=== PATIENT | female | born 1960 | race Caucasian/White ===

== ENCOUNTER 2019-03-08 02:47 | Inpatient (IN) | payer MEDICARE, MEDICAID ==
[~2019-03-08] VITALS: Ht 165.1 cm; Wt 154.1 kg
[2019-03-08] VITALS (12 sets, daily range): BP systolic 119–160; BP diastolic 62–81
[2019-03-08] MEDS ORDERED: ONDANSETRON 4 MG/2 ML (SDV) Z0FRAN IVP ONE (03:30)
[2019-03-08] MEDS ORDERED: NS IV 1000 ML 1,000 ML IV SCH ×2 (03:30→06:00)
[2019-03-08] MEDS ORDERED: FAMOTIDINE 20MG/2ML IV (PEPCID) IVP ONE (03:30)
[2019-03-08 03:56] LABS: BASOPHILS % (AUTO) 0 % (0-10); EOSINOPHILS % (AUTO) 0 % (0-10); HEMATOCRIT 42 % (35-52); HEMOGLOBIN 13.6 G/DL (11.5-16.0); LYMPHOCYTES # (AUTO) 1.2 X 10^3 (1.0-4.0); LYMPHOCYTES % (AUTO) 7 % (12-44); MEAN CORPUSCULAR HEMOGLOBIN 29 PG (25-34); MEAN CORPUSCULAR HGB CONC 33 G/DL (32-36); MEAN CORPUSCULAR VOLUME 89 FL (80-99); MEAN PLATELET VOLUME 8.3 FL (7.4-10.4); MONOCYTES % (AUTO) 4 % (0-12); NEUTROPHILS # (AUTO) 15.3 X 10^3 (1.8-7.8); NEUTROPHILS % (AUTO) 89 % (42-75); PLATELET COUNT 305 10^3/uL (130-400); RED CELL DISTRIBUTION WIDTH 14.5 % (10.0-14.5); WHITE BLOOD COUNT 17.3 10^3/uL (4.3-11.0)
[2019-03-08] MEDS ORDERED: fentaNYL INJECTION 100 MCG/2 ML AMP IVP ONE (04:00)
[2019-03-08 04:12] LABS: ALANINE AMINOTRANSFERASE 20 U/L (0-55); ALBUMIN 4.2 GM/DL (3.2-4.5); ALKALINE PHOSPHATASE 92 U/L (40-136); BILIRUBIN,TOTAL 0.4 MG/DL (0.1-1.0); BUN/CREATININE RATIO 26; CALCIUM 9.7 MG/DL (8.5-10.1); CARBON DIOXIDE 26 MMOL/L (21-32); CHLORIDE 98 MMOL/L (98-107); CREATININE SERUM 0.85 MG/DL (0.60-1.30); GFR ESTIMATED > 60; GLUCOSE 177 MG/DL (70-105); POTASSIUM 4.5 MMOL/L (3.6-5.0); SODIUM 137 MMOL/L (135-145); TOTAL PROTEIN 7.5 GM/DL (6.4-8.2)
[2019-03-08 04:13] LABS: BAND NEUTROPHILS 4 %; BASOPHILS % (MANUAL) 0 %; EOSINOPHILS % (MANUAL) 0 %; LIPASE 42 U/L (8-78); LYMPHOCYTES % (MANUAL) 8 %; MONOCYTES % (MANUAL) 5 %; NEUTROPHILS % (MANUAL) 83 %; RBC MORPH NORMAL
[2019-03-08] MEDS ORDERED: IOHEXOL 350 MG/ML 100 ML (OMNIPAQUE 350) VIAL IV ONE (04:15)
[2019-03-08] MEDS ORDERED: NS 100 ML (IVPB) BAG IV ONE (04:15)
[2019-03-08] MEDS ORDERED: HOLD METFORMIN - RECEIVED CONTRAST 20 ML VIAL IV SCH (04:15)
--- NOTE | 2019-03-08 05:07 | NUR ---
AA=276/68, PULSE 78. RESP.16, SATS 95
--- NOTE | 2019-03-08 05:44 | NUR ---
PT. UP TO VOID.
--- NOTE | 2019-03-08 06:09 | ED Abdominal Pain ---
General Chief Complaint: Abdominal/GI Problems Stated Complaint: VOMITING Nursing Triage Note: PT. HAS BEEN VOMITING FOR A FEW HOURS. SHE RECEIVED A FLU SHOT YESTERDAY, JUST FINISHED AUGMENTIN FOR AN EAR INFECTION AND UPPER RESPIRATORY INFECTION. SHE WAS ALSO TAKING SOLUMEDROL. THE PATIENT HAS FINISHED THE AUGMENTIN AND THE SOLUMEDROL. Sepsis Screen: No Definite Risk Source of Information: Patient History of Present Illness Date Seen by Provider: Mar 08, 2019 Time Seen by Provider: 03:00 Initial Comments Patient is a 58-year-old female presents with diffuse midabdominal pain with nausea and multiple episodes of emesis starting several hours prior to arrival. Pain is gradually worsened since began. Mom is nonbilious and nonbloody and primarily contains stomach contents. Pain is described as sharp nonmigratory n onradiating is rated moderate to severe. Patient also reports constipation. Last bowel movement was 2 hours prior to arrival is described as small and soft. No fever chills or sweats. No chest pain or shortness of breath. No other acute symptoms or complaints.. His cholecystectomy. Timing/Duration: 4-6 Hours Severity/Quality: Severe Location: Generalized Abdomen Radiation: No Radiation Activities at Onset: None Associated Symptoms: Nausea/Vomiting Allergies and Home Medications Allergies Coded Allergies: No Known Drug Allergies (Unverified , 03/08/19) Patient Home Medication List Home Medication List Reviewed: Yes Review of Systems Review of Systems Constitutional: see HPI EENTM: See HPI Cardiovascular: See HPI Gastrointestinal: See HPI Genitourinary: See HPI Musculoskeletal: see HPI Skin: see HPI Psychiatric/Neurological: See HPI Endocrine: See HPI Past Cknmprq-Vzjefz-Pqfvps Hx Past Med/Social Hx: Reviewed Nursing Past Med/Soc Hx Patient Social History Recent Foreign Travel: No Contact w/Someone Who Travel: No Recent Infectious Disease Expo: No Recent Hopitalizations: No Physical Abuse: No Sexual Abuse: No Mistreated: No Fear: No Seasonal Allergies Seasonal Allergies: No Past Medical History Surgeries: Yes (PT. DOES HAVE A HERNIA) Gallbladder Asthma Cardiac: No Neurological: No Genitourinary: No Gastrointestinal: Yes Gall Bladder Disease Musculoskeletal: No Endocrine: Yes Diabetes, Non-Insulin dep Are Your Blood Sugars Over 250: No Cancer: No Psychosocial: No Integumentary: Yes (PT. HAS BROWNISH SKIN ON LOWER EXT.) Physical Exam Vital Signs Vital Signs - First Documented 03/08/19 02:50 Temp 36.9 Pulse 72 Resp 20 B/P (MAP) 114/62 (79) Pulse Ox 97 O2 Delivery Room Air Capillary Refill : Less Than 3 Seconds Height/Weight/BMI Height: '" Weight: lbs. oz. kg; 56.00 BMI Method: General Appearance: moderate distress HEENT: PERRL/EOMI, TMs normal, pharynx normal Neck: non-tender, full range of motion, supple Respiratory: chest non-tender, lungs clear Cardiovascular: normal peripheral pulses, regular rate, rhythm Gastrointestinal: soft, distended, tenderness (increased bowel sounds, diffuse midabdominal pain/tenderness. No palpable masses or hernias. Exam limited due to body habitus.), other Extremities: normal range of motion, non-tender Back: normal inspection, no CVA tenderness Focused Exam Sepsis Stage: Ruled Out Progress/Results/Core Measures Results/Orders Lab Results Laboratory Tests Test 03/08/19 03:43 Range/Units White Blood Count 17.3 H 4.3-11.0 10^3/uL Red Blood Count 4.67 4.35-5.85 10^6/uL Hemoglobin 13.6 11.5-16.0 G/DL Hematocrit 42 35-52 % Mean Corpuscular Volume 89 80-99 FL Mean Corpuscular Hemoglobin 29 25-34 PG Mean Corpuscular Hemoglobin Concent 33 32-36 G/DL Red Cell Distribution Width 14.5 10.0-14.5 % Platelet Count 305 130-400 10^3/uL Mean Platelet Volume 8.3 7.4-10.4 FL Neutrophils (%) (Auto) 89 H 42-75 % Lymphocytes (%) (Auto) 7 L 12-44 % Monocytes (%) (Auto) 4 0-12 % Eosinophils (%) (Auto) 0 0-10 % Basophils (%) (Auto) 0 0-10 % Neutrophils # (Auto) 15.3 H 1.8-7.8 X 10^3 Lymphocytes # (Auto) 1.2 1.0-4.0 X 10^3 Monocytes # (Auto) 6.0 H 0.0-1.0 X 10^3 Eosinophils # (Auto) 0.0 0.0-0.3 10^3/uL Basophils # (Auto) 0.0 0.0-0.1 10^3/uL Neutrophils % (Manual) 83 % Lymphocytes % (Manual) 8 % Monocytes % (Manual) 5 % Eosinophils % (Manual) 0 % Basophils % (Manual) 0 % Band Neutrophils 4 % Blood Morphology Comment NORMAL Sodium Level 137 135-145 MMOL/L Potassium Level 4.5 3.6-5.0 MMOL/L Chloride Level 98 98-107 MMOL/L Carbon Dioxide Level 26 21-32 MMOL/L Anion Gap 13 5-14 MMOL/L Blood Urea Nitrogen 22 H 7-18 MG/DL Creatinine 0.85 0.60-1.30 MG/DL Estimat Glomerular Filtration Rate > 60 BUN/Creatinine Ratio 26 Glucose Level 177 H 70-105 MG/DL Calcium Level 9.7 8.5-10.1 MG/DL Corrected Calcium 9.5 8.5-10.1 MG/DL Total Bilirubin 0.4 0.1-1.0 MG/DL Aspartate Amino Transf (AST/SGOT) 17 5-34 U/L Alanine Aminotransferase (ALT/SGPT) 20 0-55 U/L Alkaline Phosphatase 92 40-136 U/L Troponin I < 0.30 <0.30 NG/ML Total Protein 7.5 6.4-8.2 GM/DL Albumin 4.2 3.2-4.5 GM/DL Lipase 42 8-78 U/L My Orders Orders - TEE LOUIS DO Cbc With Automated Diff (03/08/19 02:53) Comprehensive Metabolic Panel (03/08/19 02:53) Lipase (03/08/19 02:53) Troponin I Fs (03/08/19 02:53) Ekg Tracing (03/08/19 02:53) Famotidine Injection (Pepcid Injection) (03/08/19 03:30) Ondansetron Injection (Zofran Injectio (03/08/19 03:30) Ns Iv 1000 Ml (Sodium Chloride 0.9%) (03/08/19 03:30) Ct Abdomen/Pelvis W (03/08/19 03:20) Fentanyl Injection (Sublimaze Injection (03/08/19 04:00) Manual Differential (03/08/19 03:43) Iohexol Injection (Omnipaque 350 Mg/Ml 1 (03/08/19 04:15) Received Contrast (Hold Metformin- Contr (03/08/19 04:15) Ns (Ivpb) (Sodium Chloride 0.9% Ivpb Bag (03/08/19 04:15) Ns Iv 1000 Ml (Sodium Chloride 0.9%) (03/08/19 06:00) Medications Given in ED Current Medications Medications Dose Ordered Sig/Luis Route Start Time Stop Time Status Last Admin Dose Admin Famotidine 20 mg ONCE ONCE IVP 03/08/19 03:30 03/08/19 03:48 DC 03/08/19 03:58 20 MG Fentanyl Citrate 50 mcg ONCE ONCE IVP 03/08/19 04:00 03/08/19 04:01 DC 03/08/19 03:57 50 MCG Iohexol 100 ml ONCE ONCE IV 03/08/19 04:15 03/08/19 04:17 DC 03/08/19 04:21 100 ML Ondansetron HCl 4 mg ONCE ONCE IVP 03/08/19 03:30 03/08/19 03:48 DC 03/08/19 03:55 4 MG Sodium Chloride 100 ml ONCE ONCE IV 03/08/19 04:15 03/08/19 04:17 DC 03/08/19 04:21 100 ML Vital Signs/I&O 03/08/19 02:50 Temp 36.9 Pulse 72 Resp 20 B/P (MAP) 114/62 (79) Pulse Ox 97 O2 Delivery Room Air Blood Pressure Mean: 79 Departure Communication (Admissions) Dr. Adorno Lab, CT abdomen and pelvis reviewed. Findings of incarcerated hernia with partial small bowel obstruction. Dr. Adorno accepts at [facility]. Dr. Delatorre notified for surgical consult. Impression Primary Impression: Abdominal pain Additional Impressions: SBO (small bowel obstruction) Incarcerated hernia Disposition: ADMITTED INPATIENT Condition: Stable Departure-Patient Inst. Referrals: NO,LOCAL PHYSICIAN (PCP) Primary Care Physician TEE LOUIS DO Mar 08, 2019 06:09
[2019-03-08] MEDS ORDERED: morphine INJ 10 MG/ML 1ML (SYR OR VIAL) IVP PRN ×2 (07:00→13:00)
--- NOTE | 2019-03-08 07:58 | Diagnostic Imaging Report ---
PROCEDURE: CT abdomen and pelvis with contrast. TECHNIQUE: Multiple contiguous axial images were obtained through the abdomen and pelvis after administration of intravenous contrast. Auto Exposure Controls were utilized during the CT exam to meet ALARA standards for radiation dose reduction. INDICATION: Cholecystectomy. Abdominal pain and vomiting for 12 hours after a flu shot. CT abdomen and pelvis with contrast 03/08/2019. COMPARISONS: None. FINDINGS: Diffusely dilated small bowel loops seen throughout the abdomen they are fluid filled. There is an anterior abdominal wall hernia predominantly containing fat but also containing a loop of small bowel perhaps the site of obstruction/incarceration. The colon is decompressed and unremarkable. There is no free fluid in the pelvis. No free air in the abdomen or pelvis. Patient body habitus does limit evaluation due to artifact. There is fatty infiltration throughout the liver and evidence of previous cholecystectomy. Pancreas and spleen unremarkable. Adrenal glands unremarkable. Very small hiatal hernia noted. Kidneys unremarkable. The osseous structures demonstrate no evidence for acute abnormalities. There are diffuse degenerative findings throughout the spine with anterolisthesis grade 1 at L4-L5 and also at L5-S1. IMPRESSION: 1. Findings consistent with small bowel obstruction likely secondary to the small bowel loops extending into an anterior abdominal hernia as above. Mild edema about the hernia sac with incarceration suspected and not excluded. 2. Other findings as above. Pertinent findings agree with the preliminary report. Dictated by: Dictated on workstation # [id number]
[2019-03-08] MEDS ORDERED: D5 NS 1000 ML IV SOLUTION 1,000 ML IV ONE (09:41)
[2019-03-08] MEDS ORDERED: D5 NS 1000 ML IV SOLUTION 1,000 ML IV SCH (10:00)
[2019-03-08] MEDS ORDERED: CATHETER FLUSH 10 ML SYR IV PRN (10:00)
[2019-03-08] MEDS ORDERED: fentaNYL INJECTION 100 MCG/2 ML AMP IV PRN (10:00)
[2019-03-08] MEDS ORDERED: ONDANSETRON 4 MG/2 ML (SDV) Z0FRAN IV PRN (10:00)
[2019-03-08] MEDS ORDERED: BUP/EPI 0.5% 1:200,000 (SENSORCAINE) 30 ML VIAL ONE (10:09)
[2019-03-08] MEDS ORDERED: ceFAZolin INJECTION 3,000 MG in NS (IVPB) 100 ML IV NR (10:15)
--- NOTE | 2019-03-08 10:25 | NUR ---
Dr. Delatorre at bedside, OR consent signed.
--- NOTE | 2019-03-08 10:25 | Consultation - Surgery ---
History of Present Illness History of Present Illness Patient Consulted On(denae/time) 03/08/19 10:18 Time Seen by Provider: 10:07 History of Present Illness Surgery asked to consult regarding incarcerated umbilical hernia. HPI per ED: Patient is a 58-year-old female presents with diffuse midabdominal pain with nausea and multiple episodes of emesis starting several hours prior to arrival. Pain is gradually worsened since began. Vomit is nonbilious and nonbloody and primarily contains stomach contents. Pain is described as sharp nonmigratory nonradiating is rated moderate to severe. Patient also reports constipation. Last bowel movement was 2 hours prior to arrival is described as small and soft. No fever chills or sweats. No chest pain or shortness of breath. No other acute symptoms or complaints.. His cholecystectomy. Timing/Duration: 4-6 Hours Severity/Quality: Severe Associated Symptoms: Nausea/Vomiting When I spoke to pt she stated she has been bloated and had pain for past 2 we eks, but seems worse past 4 days. She states she has had the umbilical hernia for "a couple of years" and never had pain before this. She states she recently got over viral infection "that turned into bacteria and just finished Augmentin 4 days ago, it tore my stomach up." Pain is sharp and radiates throughout the abdomen. She rated the pain as 8-9 out of 10. Allergies and Home Medications Allergies Coded Allergies: No Known Drug Allergies (Unverified , 03/08/19) Patient Home Medication List Home Medication List Reviewed: Yes Past Ansnvnm-Nsslac-Aclybt Hx Patient Social History Alcohol Use: Denies Use Recreational Drug Use: No Smoking Status: Never a Smoker Recent Foreign Travel: No Contact w/Someone Who Travel: No Recent Infectious Disease Expo: No Recent Hopitalizations: No Seasonal Allergies Seasonal Allergies: No Surgeries History of Surgeries: Yes (PT. DOES HAVE A HERNIA) Surgeries: Gallbladder Respiratory Respiratory Disorders: Asthma Cardiovascular History of Cardiac Disorders: No Neurological History of Neurological Disord: No Genitourinary History of Genitourinary Disor: No Gastrointestinal History of Gastrointestinal Di: Yes Gastrointestinal Disorders: Gall Bladder Disease Musculoskeletal History of Musculoskeletal Dis: No Endocrine History of Endocrine Disorders: Yes Endocrine Disorders: Diabetes, Non-Insulin dep Cancer History of Cancer: No Psychosocial History of Psychiatric Problem: No Integumentary History of Skin or Integumenta: Yes (PT. HAS BROWNISH SKIN ON LOWER EXT.) Family Medical History Significant Family History: Heart Disease (sister), COPD (sister), Diabetes (all 3 siblings) Review of Systems-General Constitutional: chills, malaise, weakness EENTM: No blurred vision, No double vision, No mouth pain, No mouth swelling Respiratory: cough, dyspnea on exertion, short of breath Cardiovascular: No chest pain, No edema Gastrointestinal: abdominal pain; No jaundice; loss of appetite, nausea, vomiting Genitourinary: No dysuria, No frequency, No hematuria Musculoskeletal: back pain, joint pain, joint swelling, muscle stiffness Skin: No change in color, No change in hair/nails; other (diabetic ulcer left lower leg) Psychiatric/Neurological: Denies Anxiety; Depressed; Denies Seizure, Denies Tremors Other pt denies hx of abnormal bleeding or bruising Physical Exam-General Problems Physical Exam Vital Signs Vital Signs - First Documented 03/08/19 02:50 Temp 36.9 Pulse 72 Resp 20 B/P (MAP) 114/62 (79) Pulse Ox 97 O2 Delivery Room Air Capillary Refill : Less Than 3 Seconds General Appearance: WD/WN, mild distress, obese (morbidly) Eyes: Bilateral Eye PERRL, Bilateral Eye EOMI HEENT: pharynx normal; No scleral icterus (R), No scleral icterus (L); other (mucous membranes slightly dry) Neck: supple, normal inspection Respiratory: chest non-tender, lungs clear, normal breath sounds, no respiratory distress, no accessory muscle use Cardiovascular: regular rate, rhythm, systolic murmur (II/) Gastrointestinal: normal bowel sounds, soft, no organomegaly, no pulsatile mass; No guarding, No rebound; tenderness, hernia (incarcerated hernia, umbilical area) Back: no CVA tenderness, no vertebral tenderness Extremities: normal range of motion, normal inspection, no pedal edema, no calf tenderness, normal capillary refill, other (left lower leg, chronic venous stasis changes, brown ring around leg just above ankle) Neurologic/Psychiatric: security rover II-XII nml as tested, no motor/sensory deficits, alert, normal mood/affect, oriented x 3 Skin: normal color, warm/dry Lymphatic: no adenopathy (neck, axilla or groin) Data Review Labs Laboratory Tests 03/08/19 03:43: White Blood Count 17.3H, Red Blood Count 4.67, Hemoglobin 13.6, Hematocrit 42, Mean Corpuscular Volume 89, Mean Corpuscular Hemoglobin 29, Mean Corpuscular Hemoglobin Concent 33, Red Cell Distribution Width 14.5, Platelet Count 305, Mean Platelet Volume 8.3, Neutrophils (%) (Auto) 89H, Lymphocytes (%) (Auto) 7L, Monocytes (%) (Auto) 4, Eosinophils (%) (Auto) 0, Basophils (%) (Auto) 0, Neutrophils # (Auto) 15.3H, Lymphocytes # (Auto) 1.2, Monocytes # (Auto) 6.0H, Eosinophils # (Auto) 0.0, Basophils # (Auto) 0.0, Neutrophils % (Manual) 83, Lymphocytes % (Manual) 8, Monocytes % (Manual) 5, Eosinophils % (Manual) 0, Basophils % (Manual) 0, Band Neutrophils 4, Blood Morphology Comment NORMAL, Sodium Level 137, Potassium Level 4.5, Chloride Level 98, Carbon Dioxide Level 26, Anion Gap 13, Blood Urea Nitrogen 22H, Creatinine 0.85, Estimat Glomerular Filtration Rate > 60, BUN/Creatinine Ratio 26, Glucose Level 177H, Calcium Level 9.7, Corrected Calcium 9.5, Total Bilirubin 0.4, Aspartate Amino Transf (AST/SGOT) 17, Alanine Aminotransferase (ALT/SGPT) 20, Alkaline Phosphatase 92, Troponin I < 0.30, Total Protein 7.5, Albumin 4.2, Lipase 42 03/08/19 09:57: Lactic Acid Level 1.89 Assessment/Plan Assessment/Plan Assessment/Plan Incarcerated Hernia - Umbilical vs Ventral /Incisional Morbid obesity DM Asthma Sleep Apnea HTN Plan is to take pt to OR for emergent herniarraphy; this could be umbilical or incisional due to recent cholecystectomy. Pt has very tenous IV and may need central line placed in OR, have started IV fluids, pain control, anti-emetics, will give ABX just prior to procedure and have gotten consent. Pt was told that because of obesity and DM she is at increased risk for failure of the hernia repair, but I am very concerned that she could either have or will have strangulated bowel (especially with elevated WBC). Discussed risks and complications; not limited to pain, bleeding, infection, scar, need for small bowel resection, mesh failure and need for further procedure. All questions answered to her satisfaction. JESSA CAMPOS DO Mar 08, 2019 10:25
[2019-03-08] MEDS ORDERED: GLYCOPYRROLATE 0.2 MG/ML (ROBINUL) 2 ML VIAL ONE (10:29)
[2019-03-08] MEDS ORDERED: NEOSTIGMINE 3 MG/3 ML VIAL ONE (10:29)
[2019-03-08] MEDS ORDERED: MIDAZOLAM 2 MG/2 ML (VERSED) VIAL ONE (10:29)
[2019-03-08] MEDS ORDERED: LIDOCAINE PF 2% 5 ML (XYLOCAINE) VIAL ONE (10:29)
[2019-03-08] MEDS ORDERED: fentaNYL INJECTION 100 MCG/2 ML AMP ONE (10:29)
[2019-03-08] MEDS ORDERED: proPOfol 200 MG/20 ML (DIPRIVAN) VIAL IV ONE (10:29)
[2019-03-08] MEDS ORDERED: SEVOFLURANE (ULTANE) 15 ML INHAL SOLN ONE ×3 (10:29→12:33)
[2019-03-08] MEDS ORDERED: ROCURONIUM 10 MG/ML 5 ML SYRINGE IV ONE (10:29)
[2019-03-08] MEDS ORDERED: ONDANSETRON 4 MG/2 ML (SDV) Z0FRAN ONE (10:29)
--- NOTE | 2019-03-08 10:30 | NUR ---
Nasel swabs collected and sent to lab.
--- NOTE | 2019-03-08 10:35 | NUR ---
Patient ambulated to restroom and voided 300cc.
--- NOTE | 2019-03-08 10:43 | NUR ---
patient to OR via bed.
[2019-03-08] MEDS: LACTATED RINGERS 1,000 ML BAG IV PRN ×2 (11:03→12:04)
[2019-03-08] MEDS ORDERED: LISI10TA2 PO (11:24)
[2019-03-08] MEDS ORDERED: FLT4413 INH (11:24)
[2019-03-08] MEDS ORDERED: METR45GE9 TOP (11:24)
[2019-03-08] MEDS ORDERED: FLUO10CA19 PO (11:24)
[2019-03-08] MEDS ORDERED: FURO40TA4 PO (11:24)
[2019-03-08] MEDS ORDERED: METH54TA10 PO (11:24)
[2019-03-08] MEDS ORDERED: METF500T8 PO (11:24)
[2019-03-08] MEDS ORDERED: POTA20TA15 PO (11:24)
[2019-03-08] MEDS ORDERED: FLUO20CA25 PO (11:24)
[2019-03-08] MEDS ORDERED: SIMV40TA4 PO (11:24)
--- NOTE | 2019-03-08 11:25 | NUR ---
PATIENT IS OUT OF THE ROOM AT THIS TIME. I UPDATED MED REC WITH WHAT HAS BEEN FILLED RECENTLY ACCORDING TO THE EXT MED HX. I WILL CHECK BACK LATER TO VERIFY WITH THE PATIENT.
[2019-03-08] MEDS ORDERED: PHENYLEPHRINE 100 MCG/ML 10 ML (ANESTHESIA) SYR ONE (12:46)
--- NOTE | 2019-03-08 12:49 | Progress Note-Post Operative ---
Post-Operative Progess Note Surgeon (s)/[employer] Prom[employer] Specialist (s) Surgeon JESSA CAMPOS DO [employer] Specialist: Dale Pre-Operative Diagnosis incarcerated UH, DM, HTN, Sleep apnea, MO Post-Operative Diagnosis Strangulated UH with portion of bowel DM, HTN, MO, sleep apnea Procedure & Operative Findings Date of Procedure 03/08/19 Procedure Performed/Findings 1. Small bowel resection 2. Lap incarcerated umb herniarraphy with mesh placement Anesthesia Type GET Estimated Blood Loss Estimated blood loss (mL): 100 Specimens/Packing Specimens Removed hernia sac and contents portion of small bowel JESSA CAMPOS DO Mar 08, 2019 12:49
[2019-03-08] MEDS ORDERED: BUPIVACAINE 0.5% 30 ML (SENSORCAINE) VIAL ONE (13:03)
[2019-03-08] MEDS ORDERED: morphine INJ 10 MG/ML 1ML (SYR OR VIAL) IVP ONE (13:30)
[2019-03-08] MEDS ORDERED: HYDROmorphone 2 MG/ML VIAL (DILAUDID) IV ONE (13:30)
[2019-03-08] MEDS ORDERED: ONDANSETRON 4 MG/2 ML (SDV) Z0FRAN IVP PRN (13:30)
--- NOTE | 2019-03-08 14:58 | History & Physical-Hospitalist ---
JASMIN SMITH MED STUDENT 03/08/19 1458: History of Present Illness HPI/Chief Complaint CC: Midabdominal pain, nausea and vomiting When I spoke to Ms. Durand today she had recently undergone emergent surgery on hernia and incarcerated bowel. She was alert and oriented, felt well overall, and was in a pleasant mood. Her abdominal pain is not as bad as be fore, although she does report some pain due to the procedure. Prior to the procedure she had pain in the epigastric/midabdominal area, above her belly button, as well as nausea and vomiting, she reports a spell of vomiting that lasted 6 hours. Besides the abdominal pain, her only complaint is of a dry mouth, her daughter in law is giving her spoons of ice. Source: patient Exam Limitations: clinical condition (no abdominal exam due to recent surgery) Date Seen 03/08/19 Time Seen by a Provider: 15:30 Attending Physician Lupe Grier DO PCP No,Local Physician Referring Physician Date of Admission Mar 08, 2019 at 08:17 Home Medications & Allergies Home Medications Reviewed patient Home Medication Reconciliation performed by pharmacy medication reconciliations bakery technician and/or nursing. Patients Allergies have been reviewed. Allergies Allergies Coded Allergies No Known Drug Allergies (Afkwttiwbg43/9/19) Past Ewehhlj-Wryovy-Zladfh Hx Past Med/Social Hx: Reviewed Nursing Past Med/Soc Hx Patient Social History Marrital Status: (lives with and cares for older sister) Employed/Student: unemployed (worked at [employer] for 10 years until knee injury and surgery) Alcohol Use: Denies Use Recreational Drug Use: No Smoking Status: Never a Smoker Recent Foreign Travel: No Contact w/other who traveled: No Recent Hopitalizations: No Recent Infectious Disease Expo: No Seasonal Allergies Seasonal Allergies: No Past Medical History Surgeries: Gallbladder, Orthopedic Respiratory: Asthma Cardiac: Hypertension Gastrointestinal: Gall Bladder Disease Musculoskeletal: Osteoporosis Endocrine: Diabetes, Non-Insulin dep Are Your Blood Sugars Over 250: No Psychosocial: ADD/ADHD Family History Heart Disease (sister), COPD (sister), Diabetes (all 3 siblings), Psychiatric Problems Review of Systems Constitutional: No chills (prior to surgery), No diaphoresis, No fever EENTM: ear pain (R ear, prior to surgery), throat pain (prior to surgery) Respiratory: No cough; short of breath (intermittent due to asthma) Cardiovascular: No chest pain; edema (if she stands for 15-20 minutes) Gastrointestinal: abdominal pain (RUQ, LUQ), constipation (prior to surgery), diarrhea (prior to surgery) Genitourinary: No dysuria, No frequency, No incontinence Musculoskeletal: back pain (low back), joint pain (knee pain) Psychiatric/Neurological: Denies Anxiety, Denies Depressed, Denies Emotional Problems, Denies Headache; Numbness (diabetic neuropathy); Denies Tingling Physical Exam Physical Exam Vital Signs Vital Signs - First Documented 03/08/19 02:50 Temp 36.9 Pulse 72 Resp 20 B/P (MAP) 114/62 (79) Pulse Ox 97 O2 Delivery Room Air Capillary Refill : Less Than 3 Seconds Height, Weight, BMI Height: '" Weight: lbs. oz. kg; 56.00 BMI Method: General Appearance: No Apparent Distress, Obese Neck: Normal Inspection, Non Tender; No Lymphadenopathy (L), No Lymphadenopathy (R) Respiratory: Lungs Clear, Normal Breath Sounds, No Accessory Muscle Use Cardiovascular: Regular Rate, Rhythm, No Edema, Normal Peripheral Pulses, Systolic Murmur (heard best at 2nd R intercostal, parasternal) Extremity: No Calf Tenderness, No Pedal Edema, Other (old wound on lower left leg, spanning much of the ruiz) Neurologic/Psychiatric: Alert, Oriented x3, Normal Mood/Affect Skin: Warm/Dry Lymphatic: No Adenopathy Results Results/Procedures Labs Laboratory Tests 03/08/19 03:43 Patient resulted labs reviewed. Assessment/Plan Assessment and Plan Assessment: 1. s/p emergent surgery due to incarcerated bowel 2. systolic murmur 3. diabetes mellitus 4. hypertension 5. asthma 6. ADHD Plan: 1. monitor s/p surgery 2. continue medications for chronic conditions 3. consider cardiac workup for systolic murmur LUPE GRIER DO 03/08/19 194: History of Present Illness HPI/Chief Complaint CC: Abdominal pain HPI: This is a [facility] pt who presented to the [facility] ER with complaints of abdominal pain and was found to have a ventral hernia incarceration with subsequent small bowel obstruction in need of urgent surgery. She was provided supportive care in the ER, transported to [place] [facility] Room 423, seen urgently by Dr. Delatorre who brought her to surgery and resected bowel and otherwise she tolerated the procedure well. At this current time the pt is drowsy and has no complaints. Past Jndrbrl-Kcsqkz-Wjzegx Hx Past Med/Social Hx: Reviewed Nursing Past Med/Soc Hx, Reviewed and Corrections made Patient Social History Marrital Status: (lives with and cares for older sister) Employed/Student: unemployed (worked at [employer] for 10 years until knee injury and surgery) Physical Exam Physical Exam General Appearance: No Apparent Distress, WD/WN, Anxious, Chronically ill, Obese Respiratory: Lungs Clear Cardiovascular: Regular Rate, Rhythm Neurologic/Psychiatric: Alert, Oriented x3, No Motor/Sensory Deficits, Normal Mood/Affect Assessment/Plan Admission Diagnosis Assessment: Incarcerated hernia with SBO s/o urgent resection per Dr Delatorre POD # 0 Chronic debility SAPNA on CPAP Left lower leg spider bite 10 yrs ago with residual altered skin region Plan: NPO IVF Pain control Admission Status: Inpatient Order (span 2 midnights) Reason for Inpatient Admission: Emergent surgery due to incacerated bowel Diagnosis/Problems Diagnosis/Problems (1) Incarcerated hernia Status: Acute (2) SAPNA on CPAP Status: Chronic (3) Obesity, morbid, BMI 50 or higher Status: Chronic (4) Leukocytosis Status: Acute Qualifiers: Leukocytosis type: leukemoid reaction Qualified Codes: D72.823 - Leukemoid reaction (5) Abdominal pain Status: Acute Qualifiers: Abdominal location: generalized Qualified Codes: R10.84 - Generalized abdominal pain (6) SBO (small bowel obstruction) Status: Acute Supervisory-Addendum Brief Verification & Attestation Participated in pt care: history, MDM, physical Personally performed: exam, history, MDM, supervision of care Care discussed with: Medical Student Procedures: n/a Results interpretation: Verified all documentation Verification and Attestation of Medical Student E/M Service A medical student performed and documented this service in my presence. I reviewed and verified all information documented by the medical student and made modifications to such information, when appropriate. I personally performed the physical exam and medical decision making. Lupe Grier, Mar 08, 2019,19:44 JASMIN SMITH MED STUDENT Mar 08, 2019 14:58 LUPE GRIER DO Mar 08, 2019 19:45
[2019-03-08] MEDS ORDERED: RT-ALBUINH IH (16:11)
[2019-03-08] MEDS ORDERED: PENI500T PO (16:11)
[2019-03-08] MEDS ORDERED: MELA3TAB PO (16:12)
[2019-03-08] MEDS ORDERED: CHOL20003 PO (16:12)
[2019-03-08] MEDS ORDERED: FISH12002 PO (16:12)
[2019-03-08] MEDS ORDERED: MULT-878 PO (16:12)
--- NOTE | 2019-03-08 16:13 | NUR ---
WENT OVER THE EXT MED HX WITH THE PATIENT AND SHE VERIFIED HOW SHE TAKES THEM. SHE WAS ALSO ABLE TO LIST ALL HER OTC MEDS.
[2019-03-08] MEDS: MICONAZOLE 2% POWDER (DESENEX AF) 90 GM TOP SCH (17:55)
[2019-03-08] MEDS: ceFAZolin 2 GM IV Premixed 50 ML IV SCH (18:42)
--- NOTE | 2019-03-08 19:45 | OPERATIVE REPORT ---
DATE OF SERVICE: 03/08/2019 PREOPERATIVE DIAGNOSES: 1. Incarcerated umbilical hernia. 2. Diabetes mellitus. 3. Hypertension. 4. Morbid obesity. 5. Sleep apnea. POSTOPERATIVE DIAGNOSES: 1. Strangulated umbilical hernia with bowel. 2. Diabetes mellitus. 3. Hypertension. 4. Sleep apnea. 5. Morbid obesity. PROCEDURES: 1. Small bowel resection. 2. Laparoscopic herniorrhaphy with mesh placement. SURGEON: Jessa Delatorre DO COMMUNICATIONS COORDINATOR: Chucho Hunter DO ANESTHESIA: General endotracheal tube. SPECIMEN: 1. Hernia sac and contents. 2. Portion of bowel. BLOOD LOSS: Approximately, 100 mL. FLUIDS: Per anesthesia. POSTOPERATIVE CONDITION: Stable. INDICATION FOR PROCEDURE: The patient is a 58-year-old female, who had abdominal pain, vomiting and had an elevated white count. CAT scan showed incarcerated bowel in the umbilical hernia. FINDINGS: The patient had an incarcerated umbilical hernia with a large amount of omentum and some intestine and we got the intestine out. It was noted to be ischemic. PROCEDURE NOTE: After informed consent was obtained, the patient was brought to the operating room, placed on the table in supine position. She was sterilely prepped and draped in normal fashion. Local lidocaine was used to infiltrate the skin in left upper quadrant, made an incision with #11 blade, carried down through the skin into subcutaneous tissue, then deepened down to subcutaneous tissue with Bovie electrocautery down to the fascia. Fascia incised with electrocautery, bluntly entered the abdomen after spreading the muscle going through the posterior fascia, placed 11 mm trocar port under direct visualization. Created pneumoperitoneum and then placed another port in the left lower quadrant using local lidocaine, 11 blade for stab incision and VersaStep system, all done under direct visualization. There were some midline adhesions from an open gallbladder. These were carefully taken down with blunt dissection as well as Bovie electrocautery, then able to visualize the incarcerated umbilical hernia, took a picture of this and then able to get another 5 mm port in the right lower quadrant using local lidocaine, 11 blade for stab incision and VersaStep system, all done under direct visualization. The patient placed slightly Trendelenburg. Then started taking the omentum out of the hernia, elected to come across the omentum with the LigaSure, clamping, coagulating and transecting, freeing this up and then pulled some of the omentum out. We then pulled the small intestine out. Once we pulled the small intestine out and noted it to be ischemic, at this point, I elected to make a small incision in the midline just above the umbilicus with a #11 blade, carried down to skin into subcutaneous tissue and deepened down to subcutaneous tissue with Bovie electrocautery down to the fascia, going around the hernia sac actually found a very large hernia sac with omentum, removed this and then opened the fascia a little bit more, pulled the two pieces of omentum that we had resected and pulled out of the hernia sac, pulled these out and passed them off the table, then brought the small bowel that was ischemic through the midline incision, made a defect in the mesentery under both sides of the small intestine distal and proximal to the ischemic bowel and then made a small incision in the intestine on the antimesenteric border and then placed ABIDA one side in each portion of the bowel and then brought it together, held for 30 seconds, clamped and fired, thereby creating a [id number] functional end-to-end anastomosis, then used a second ABIDA-75 firing to close the enteroenterostomy and then used the LigaSure to take off the mesentery and the ischemic bowel, passed this off the table. Closed the mesenteric defect with 3-0 Vicryl running suture, had placed a crotch stitch on the antimesenteric border of the 2 pieces of small intestine. At this point, then dropped this back into the abdomen. Elected to place a 15 cm x 10 cm Phasix mesh. Because of the bowel resection, I did not want place any other mesh, I wanted an absorbable mesh. At this point, then placed an 0 Vicryl in the middle of this Phasix mesh and then put this into the abdomen and then closed the fascia with a #1 double stranded suture running from superior portion to inferior portion tying to itself, recreated the pneumoperitoneum and then tacked the mesh up at the four corners with a SecureStrap Tacker and then tacked in between at 0.5 to 1 cm intervals and then in the middle to create a second [place] basically of tacks. The mesh was laid nicely in the abdominal wall. Picture was taken and at this point, copiously irrigated the incision with normal saline and then closed the midline incision with valerie. I then closed the 2 small 5 mm incisions with valerie. Prior to pulling out the scope, closed the left upper quadrant incision, closing the fascia with a Garrick-Liz to close the fascia, it closed nicely. This was then copiously irrigated with normal saline and then skin closed with valerie. Area was cleaned and dried, dressing was placed. The patient tolerated the procedure well. Sponge, instrument and needle count were correct at the end of the case. Dr. Hunter assisted in this case helping to make incisions, close incisions, identify anatomy and helped and hold anatomy out of the way. Job ID: [id number] DocumentID: [id number] Dictated Date: 03/08/2019 13:30:45 Oven Operator Date: 03/08/2019 19:45:24 Dictated By: JESSA DELATORRE DO
[2019-03-08] MEDS: LACTATED RINGERS 1,000 ML IV SCH ×2 (20:49→23:19)
[2019-03-08] MEDS: morphine INJ 4 MG/ML 1 ML (VIAL/SYRINGE) IV PRN (23:19)
[2019-03-09] VITALS: BP 127/79
[2019-03-09] MEDS: ceFAZolin 2 GM IV Premixed 50 ML IV SCH (01:36)
[2019-03-09 04:00] VITALS: BP 127/76
[2019-03-09] MEDS: LACTATED RINGERS 1,000 ML IV SCH ×2 (04:42→08:53)
[2019-03-09] MEDS: morphine INJ 4 MG/ML 1 ML (VIAL/SYRINGE) IV PRN (05:03)
[2019-03-09 06:07] LABS: BASOPHILS % (AUTO) 0 % (0-10); EOSINOPHILS % (AUTO) 0 % (0-10); HEMATOCRIT 35 % (35-52); HEMOGLOBIN 11.3 G/DL (11.5-16.0); LYMPHOCYTES # (AUTO) 1.7 X 10^3 (1.0-4.0); LYMPHOCYTES % (AUTO) 15 % (12-44); MEAN CORPUSCULAR HEMOGLOBIN 29 PG (25-34); MEAN CORPUSCULAR HGB CONC 32 G/DL (32-36); MEAN CORPUSCULAR VOLUME 90 FL (80-99); MEAN PLATELET VOLUME 8.3 FL (7.4-10.4); MONOCYTES # (AUTO) 1.1 X 10^3 (0.0-1.0); MONOCYTES % (AUTO) 9 % (0-12); NEUTROPHILS # (AUTO) 8.6 X 10^3 (1.8-7.8); NEUTROPHILS % (AUTO) 75 % (42-75); PLATELET COUNT 250 10^3/uL (130-400); RED CELL DISTRIBUTION WIDTH 15.6 % (10.0-14.5); WHITE BLOOD COUNT 11.4 10^3/uL (4.3-11.0)
[2019-03-09 06:30] LABS: ALANINE AMINOTRANSFERASE 16 U/L (0-55); ALBUMIN 3.2 GM/DL (3.2-4.5); ALKALINE PHOSPHATASE 61 U/L (40-136); BILIRUBIN,TOTAL 0.6 MG/DL (0.1-1.0); BUN/CREATININE RATIO 16; CALCIUM 8.2 MG/DL (8.5-10.1); CARBON DIOXIDE 23 MMOL/L (21-32); CHLORIDE 104 MMOL/L (98-107); CREATININE SERUM 0.77 MG/DL (0.60-1.30); GFR ESTIMATED > 60; GLUCOSE 136 MG/DL (70-105); SODIUM 137 MMOL/L (135-145); TOTAL PROTEIN 5.8 GM/DL (6.4-8.2)
[2019-03-09 08:00] VITALS: BP 112/70
--- NOTE | 2019-03-09 08:31 | Progress Note - Surgery ---
RONDABEENA,MED STUDENT 03/09/19 0831: Subjective Date Seen by a Provider: Mar 09, 2019 Time Seen by a Provider: 07:30 Subjective/Events-last exam Patient reports some incisional tenderness, but abdominal pain has otherwise improved. She reports passing a lot of flatus overnight, but no bowel movements yet. Tolerating clear liquids. She states that she got up and walked twice yesterday. Focused Exam Lactate Level 03/08/19 09:57: Lactic Acid Level 1.89 Objective Exam Vital Signs Date Time Temp Pulse Resp B/P (MAP) Pulse Ox O2 Delivery O2 Flow Rate FiO2 03/09/19 04:00 37.5 89 16 127/76 (93) 95 Nasal Cannula 1.00 03/09/19 03:20 Nasal Cannula 1.00 03/09/19 00:00 37.2 88 20 127/79 (95) 95 Nasal Cannula 1.00 03/08/19 22:10 37.4 03/08/19 20:55 37.8 83 20 122/70 (87) 93 Nasal Cannula 1.00 03/08/19 20:00 Room Air 03/08/19 19:50 Room Air 03/08/19 16:59 37.4 85 18 119/66 (83) 97 Nasal Cannula 3.50 03/08/19 15:40 Nasal Cannula 3.00 03/08/19 15:15 37.0 80 20 127/75 (92) 03/08/19 15:05 Nasal Cannula 3 03/08/19 14:55 Nasal Cannula 03/08/19 14:50 36.2 20 141/81 (101) 96 Nasal Cannula 3 03/08/19 14:40 16 135/69 (91) 96 Nasal Cannula 3 03/08/19 14:30 20 130/69 (89) 93 Nasal Cannula 3 03/08/19 14:25 Nasal Cannula 03/08/19 14:20 20 146/70 (95) 100 OxyMask 3 03/08/19 14:10 OxyMask 10 03/08/19 14:10 24 139/77 (97) 99 OxyMask 10 03/08/19 14:00 20 139/72 (94) 99 03/08/19 13:55 OxyMask 10 03/08/19 13:50 20 148/74 (98) 100 OxyMask 10 03/08/19 13:40 20 138/62 (87) 99 OxyMask 10 03/08/19 13:27 OxyMask 10 03/08/19 13:27 36.4 12 160/80 (106) 96 OxyMask 10 I & O 03/09/19 07:00 Intake Total 3050 ml Output Total 650 ml Balance 2400 ml Capillary Refill : Less Than 3 Seconds General Appearance: No Apparent Distress, WD/WN, Obese HEENT: Moist Mucous Membranes Neck: Normal Inspection, Non Tender Respiratory: Lungs Clear, No Accessory Muscle Use, No Respiratory Distress Cardiovascular: Regular Rate, Rhythm, No Edema Gastrointestinal: soft, no organomegaly; No guarding, No rebound; tenderness (incisional tenderness), other (incisions clean and dry without evidence of infection) Extremity: No Calf Tenderness, No Pedal Edema Neurologic/Psychiatric: Alert, Oriented x3, No Motor/Sensory Deficits, Normal Mood/Affect Skin: Normal Color, Warm/Dry Lymphatic: No Adenopathy Results Lab Laboratory Tests 03/08/19 09:57: Lactic Acid Level 1.89 03/09/19 05:45: White Blood Count 11.4H, Red Blood Count 3.94L, Hemoglobin 11.3L, Hematocrit 35, Mean Corpuscular Volume 90, Mean Corpuscular Hemoglobin 29, Mean Corpuscular Hemoglobin Concent 32, Red Cell Distribution Width 15.6H, Platelet Count 250, Mean Platelet Volume 8.3, Neutrophils (%) (Auto) 75, Lymphocytes (%) (Auto) 15, Monocytes (%) (Auto) 9, Eosinophils (%) (Auto) 0, Basophils (%) (Auto) 0, Neutrophils # (Auto) 8.6H, Lymphocytes # (Auto) 1.7, Monocytes # (Auto) 1.1H, Eosinophils # (Auto) 0.0, Basophils # (Auto) 0.0, Sodium Level 137, Potassium Level 4.0, Chloride Level 104, Carbon Dioxide Level 23, Anion Gap 10, Blood Urea Nitrogen 12, Creatinine 0.77, Estimat Glomerular Filtration Rate > 60, BUN/Creatinine Ratio 16, Glucose Level 136H, Calcium Level 8.2L, Corrected Calcium 8.8, Total Bilirubin 0.6, Aspartate Amino Transf (AST/SGOT) 17, Alanine Aminotransferase (ALT/SGPT) 16, Alkaline Phosphatase 61, Total Protein 5.8L, Al bumin 3.2 Assessment/Plan Assessment/Plan Assessment/Plan Incarcerated umbilical hernia and partial small bowel obstruction s/p herniarrhaphy and small bowel resection Morbid obesity DM Asthma Sleep Apnea HTN s/p emergent umbilical herniarraphy and bowel resection yesterday Pain control and IV fluids Continue clear liquid diet Clinical Quality Measures DVT/VTE Risk/Contraindication: Risk Factor Score Per Nursin RFS Level Per Nursing on Admit: 4+=Very High MALIK DELATORRE DO 03/09/19 0918: Subjective Time Seen by a Provider: 09:05 Subjective/Events-last exam Pt is concerned about not being able to do normal activities at home and asked about rehab. Pt has pain that is mostly controlled. Unfortunately, nurse states her IV fell out. Review of Systems Pulmonary: No Dyspnea, No Cough Cardiovascular: No: Chest Pain Gastrointestinal: Abdominal Pain; No: Nausea, Vomiting Objective Exam Gastrointestinal: other (incisions clean, dry and intact. no erythema) Assessment/Plan Assessment/Plan Assessment/Plan Will leave IV out, start PO pain meds and encourage IS use and ambulation. Will advance diet slowely. I will also talk to SW about rehab, although I think she should be able to go home by herself (her niece lives nearby). Supervisory-Addendum Brief Verification & Attestation Participated in pt care: history, MDM, physical Personally performed: exam, history, MDM Care discussed with: Medical Student Procedures: n/a Verification and Attestation of Medical Student E/M Service A medical student performed and documented this service in my presence. I reviewed and verified all information documented by the medical student and made modifications to such information, when appropriate. I personally performed the physical exam and medical decision making. Mlaik Delatorre, Mar 09, 2019,09:18 BEENA BOND,MED STUDENT Mar 09, 2019 08:31 MALIK DELATORRE DO Mar 09, 2019 09:18
[2019-03-09] MEDS: MICONAZOLE 2% POWDER (DESENEX AF) 90 GM TOP SCH ×2 (08:55→21:31)
--- NOTE | 2019-03-09 10:46 | Physical Therapy Evaluation ---
PT Evaluation-General Medical Diagnosis Admission Date Mar 08, 2019 at 08:17 Medical Diagnosis: weakness, s/p herniarrhaphy and small bowel resection Onset Date: Mar 08, 2019 Therapy Diagnosis Therapy Diagnosis: impaired mobility, strength, endurance Precautions Precautions/Isolations: Standard Precautions Referral Physician: Lupe Adorno DO Reason for Referral: Evaluation/Treatment Medical History Additional Medical History Past Medical History Surgeries: Gallbladder, Orthopedic Respiratory: Asthma Cardiac: Hypertension Gastrointestinal: Gall Bladder Disease Musculoskeletal: Osteoporosis Endocrine: Diabetes, Non-Insulin dep Are Your Blood Sugars Over 250: No Psychosocial: ADD/ADHD Reviewed History: Yes Social History Home: Single Level Current Living Status: lives with her sister Entry Into Home: Ramp, Stairs With Railing PT Steps Into Home: 4 Patient states that there is nobody at home that will be able to assist her. Prior Prior Level of Function SCALE: Activities may be completed with or without assistive devices. 5-Zscpyrcsld-jrimnas completes the activity by him/herself with no assistance from a helper. 5-Set-up or Clean-up Assistance-helper sets up or cleans up; patient completes activity. [place] assists only prior to or following the activity. 4-Supervision or Touching Assistance-helper provides verbal cues and/or touching/steadying and/or contact guard assistance as patient completes activity. Assistance may be provided throughout the activity or intermittently. 3-Partial/Moderate Assistance-helper does LESS THAN HALF the effort. [place] li fts, holds or supports trunk or limbs, but provides less than half the effort. 2-Substantial/Maximal Assistance-helper does MORE THAN HALF the effort. [place] lifts or holds trunk or limbs and provides more than half the effort. 5-Sgcsxhqhg-ficscl does ALL the effort. Patient does none of the effort to complete the activity. Or, the assistance of 2 or more helpers is required for the patient to complete the activity. If activity was not attempted, code reason: 7-Patient Refused. 9-Not Applicable-not attempted and the patient did not perform the activity before the current illness, exacerbation or injury. 10-Not Attempted due to Environmental Limitations-(lack of equipment, weather restraints, etc.). 88-Not Attempted due to Medical Conditions or Safety Concerns. Bed Mobility: 6 Transfers (B,C,W/C): 6 Gait: 6 Stairs: 6 Indoor Mobility (Ambulation): Independent Stairs: Independent Used single point cane. PT Evaluation-Current Subjective Patient in bed pre tx, agrees to PT, has 8/10 pain in abdomen. Patient needs to use the restroom after ambulating. Pt/Family Goals "to be able to walk on my own. Objective Patient Orientation: Person, Place, Situation ROM/Strength ROM Lower Extremities limited generally due to morbid obesity Strength Lower Extremities 4/5 gross BLE Sensory Vision: Wears Glasses Hearing: Functional Sensation Right Lower Extremit: Intact Sensation Left Lower Extremity: Intact Transfers Roll Left to Right (QC): 3 Sit to Lying (QC): 3 Lying to Sitting/Side of Bed(Q: 3 Sit to Stand (QC): 3 Chair/Gpc-ef-Wsawp Xfer(QC): 4 mod assist for rolling and supine to sit, min assist sit to stand, CGA for transfers Gait Does the Patient Walk?: Yes Mode of Locomotion: Walk Anticipated Mode of Locomotion: Walk Walk 10 feet (QC): 4 Walk 50 ft with 2 Turns(QC): 4 Distance: 80' Gait Assistive Device: FWW Comments/Gait Description Patient ambulated 80' with a rolling walker with CGA, very slow and antalgic ambulation, wide ADRIÁN Balance Sitting Static: Fair Sitting Dynamic: Fair Standing Static: Fair Standing Dynamic: Fair Treatment Patient was toileted and needed assist with wiping which nurse did. Assessment/Needs Patient has impaired mobility, strength, endurance. Patient in recliner post tx with nurse call, OT here to take over and work with her. Patient needs extra time with all mobility due to pain. Rehab Potential: Fair PT Snf Goals Local Flatbed Driver Goals PT Snf Goals Time Frame: Mar 16, 2019 Sit to Lying (QC): 4 (SBA) Lying-Sitting on Side/Bed(QC): 4 (SBA) Sit to Stand (QC): 4 (SBA) Roll Left to Right (QC): 4 (SBA) Chair/Whs-ek-Azetp Xfer(QC): 4 (SBA) Distance: 150' Walk 10 feet (QC): 4 (SBA) Walk 10ft-Uneven Surface(QC): 4 (SBA) Walk 50ft with 2 Turns (QC): 4 (SBA) Walk 150 ft (QC): 4 (SBA) Gait Assistive Device: FWW PT Plan Problem List Problem List: Activity Tolerance, Functional Strength, Safety, Balance, Gait, Transfer, Bed Mobility, ROM Treatment/Plan Treatment Plan: Continue Plan of Care Treatment Plan: Bed Mobility, Concurrent Therapy, Education, Functional Activity Jonathan, Functional Strength, Gait, Safety, Therapeutic Exercise, Transfers Treatment Duration: Mar 16, 2019 Frequency: 6 times per week Estimated Hrs Per Day: .25 hour per day Patient and/or Family Agrees t: Yes Safety Risks/Education Patient Education: Gait Training, Transfer Techniques, Correct Positioning, Safety Issues Teaching Recipient: Patient Teaching Methods: Demonstration, Discussion Response to Teaching: Reinforcement Needed Discharge Recommendations Plan Patient will perform bed mobility and transfer training, balance and endurance training, functional strengthening, stair training, gait training, and education, to improve functional mobility and independence at home. Therapy Discharge Recommendati: Other, See Comments (home health and therapy) Time/GCodes Time In: 1008 Time Out: 1036 Total Billed Treatment Time: 28 Total Billed Treatment 1 visit GABE 15' FA 13' MARLENY MCDANIELS PT Mar 09, 2019 10:46
--- NOTE | 2019-03-09 11:14 | Occupational Therapy Eval ---
OT Evaluation-General/PLF Medical Diagnosis Admission Date Mar 08, 2019 at 08:17 Medical Diagnosis: weakness, s/p herniarrhaphy and small bowel resection Onset Date: Mar 08, 2019 Therapy Diagnosis Therapy Diagnosis: decr self care, weakness, decr funct mob, decr activ alejandro Precautions Precautions/Isolations: Standard Precautions Safety Interventions: None Referral Physician: Lupe Adorno DO Referral Reason: Evaluation/Treatment Medical History Pertinent Medical History: DM, HTN Additional Medical History Asthma. Morbid obesity. Sleep apnea. Osteoporosis. ADD/ADHD. Back pain. Pt reported total knee replacements in 2013 and 2015. Current History Admitted with abdominal pain and vomiting. Incarcerated hernia repair and small bowel resection 03-08-19 Reviewed History: Yes Social History Home: Single Level Current Living Status: Other Family Entry Into Home: Ramp, Stairs With Railing Steps Into Home: 4 ADL-Prior Level of Function SCALE: Activities may be completed with or without assistive devices. 3-Atdiwqoosq-kbnwigf completes the activity by him/herself with no assistance from a helper. 5-Set-up or Clean-up Assistance-helper sets up or cleans up; patient completes activity. [place] assists only prior to or following the activity. 4-Supervision or Touching Assistance-helper provides verbal cues and/or neha emilie/steadying and/or contact guard assistance as patient completes activity. Assistance may be provided throughout the activity or intermittently. 3-Partial/Moderate Assistance-helper does LESS THAN HALF the effort. [place] lifts, holds or supports trunk or limbs, but provides less than half the effort. 2-Substantial/Maximal Assistance-helper does MORE THAN HALF the effort. [place] lifts or holds trunk or limbs and provides more than half the effort. 3-Xdlopymsk-hpjtmc does ALL the effort. Patient does none of the effort to complete the activity. Or, the assistance of 2 or more helpers is required for the patient to complete the activity. If activity was not attempted, code reason: 7-Patient Refused. 9-Not Applicable-not attempted and the patient did not perform the activity before the current illness, exacerbation or injury. 10-Not Attempted due to Environmental Limitations-(lack of equipment, weather restraints, etc.). 88-Not Attempted due to Medical Conditions or Safety Concerns. 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 Pt reported that her sister takes "quite a lot" of help. She is disabled because of her legs, per her report, and has worked in the fast food industry. She was able to manage her basic self care needs although she needed extra time and modified techniques. She has walked with a cane for over twenty years and uses a FWW for distances. She stated that her sister's adult daughter helps her with chores around the home but that she needs tos top every 15 minutes or so and lie down due to fatigue (and asthma, per her report). Self Care: Independent Functional Cognition: Independent DME/Equipment: Bath Chair, Tub/Shower, Toilet/[address] Self: Yes OT Current Status Subjective Pt seen in room, up in recliner, agreeable to OT. Pain reported 8/10 and observed pain behaviors when she coughed. Appearance Alert, cooperative, flat affect. Tearful at times Mental Status/Objective Patient Orientation: Person, Place, Situation Attachments: [place]ine Lock Current Glasses/Contacts: Yes Hand Dominance: Right Upper Extremity ROM Grossly WFL bilat Upper Extremity Strength Grossly 4/5 bilat ADL-Treatment ADL-Current Pt had just completed transfer to recliner with PT/ Walked 80 feet with CGA, FWW. Pt reported that she can get on/off toilet by using grab bar and holding on to a person. She is not able to wipe at this time. She was observed to get a drink of water but reaching appeared painful. Pt became tearful about concerns on who will be able to care for her sister when she is discharged and fears that she will be discharged to home before she can et in/out of bed by herself and take herself to the bathroom. She is also concerned about being able to complete hygiene after a BM because of the twisting that she will have to do. Pt left up in recliner, legs elevated, all needs met, nursing in room. Information shared with machine adjuster leader case trim/social work. Education OT Patient Education: Purpose of tx/functional activities, Rehab process Teaching Recipient: Patient Teaching Methods: Discussion Response to Teaching: Verbalize Understanding OT Web Producer Goals Nursing Home Goals Time Frame: Mar 18, 2019 Eating (QC): 6 Oral Hygiene (QC): 6 Shower/Bathe Self (QC): 5 Upper Body Dressing (QC): 5 Lower Body Dressing (QC): 5 On/Off Footwear (QC): 5 Toileting Hygiene (QC): 5 Toilet/Commode Transfer (QC): 5 Additional Goals: 1-Demonstrate ADL Tasks, 2-Verbalize Understanding, 3- ImproveStrength/Jonathan 1=Demonstrate adherence to instructed precautions during ADL tasks. 2=Patient will verbalize/demonstrate understanding of assistive devices/modifications for ADL. 3=Patient will improve strength/tolerance for activity to enable patient to perform ADL's. OT Education/Plan Problem List/Assessment Assessment: Decreased Activ Tolerance, Decreased UE Strength, Dependent Transfers, Impaired Self-Care Skills Pt would benefit from skilled OT to increase her independence in basic self care to allow her to safely return home Discharge Recommendations Plan/Recommendations: Continue POC Therapy Discharge Recommendati: Post Acute OT Treatment Plan/Plan of Care Treatment,Training & Education: Yes Patient would benefit from OT for education, treatment and training to promote independence in ADL's, mobility, safety and/or upper extremity function for ADL's. Plan of Care: ADL Retraining, Functional Mobility, UE Funct Exercise/Act, UE Neuromus Re-Ed/Coord, OTHER (energy conservation education) Treatment Duration: Mar 18, 2019 Frequency: 5 times per week Estimated Hrs Per Day: .5 hour per day Agreement: Yes Rehab Potential: Fair Time/GCodes Start Time: 10:36 Stop Time: 10:54 Total Time Billed (hr/min): 18 Billed Treatment Time visit, evaluation moderate intensity 18 minutes LILIBETH STEPHEN OT Mar 09, 2019 11:14
--- NOTE | 2019-03-09 11:16 | Progress Note - Hospitalist ---
JASMIN SMITH MED STUDENT 03/09/19 1116: Subjective HPI/CC On Admission Date Seen by Provider: Mar 09, 2019 Time Seen by Provider: 08:10 CC: Abdominal pain HPI: This is a [facility] pt who presented to the [facility] ER with complaints of abdominal pain and was found to have a ventral hernia incarceration with subsequent small bowel obstruction in need of urgent surgery. She was provided supportive care in the ER, transported to [place] Room 423, seen urgently by Dr. Delatorre who brought her to surgery and resected bowel and otherwise she tolerated the procedure well. At this current time the pt is drowsy and has no complaints. Subjective/Events-last exam * Feels slightly feverish, and has worse abdominal pain than when I saw her before, particularly when she exerts herself, for example by sitting up. * She has not had a BM yet since her surgery, but has had flatus. * Her other complaints are of a headache, slight nausea, acid reflux, and of SOB, which she always has due to asthma. * She was already aware of the murmur she has on heart auscultation. * Her labs today show anemia with Hgb of 3.94 and Hct of 11.3, as well as a high neutrophil and monocyte count. They also show an improved BUN, but also low calcium and low total protein. Review of Systems General: No Chills; Other (subjective fever) HEENT: Head Aches; No Sinus Congestion Pulmonary: Dyspnea; No Cough Cardiovascular: Edema; No: Chest Pain, Palpitations Gastrointestinal: Nausea, Abdominal Pain, Constipation, Other (reflux); No: Vomiting Genitourinary: No Dysuria, No Frequency Neurological: No: Weakness, Numbness Focused Exam Lactate Level 03/08/19 09:57: Lactic Acid Level 1.89 Objective Exam Vital Signs Vital Signs Date Time Temp Pulse Resp B/P (MAP) Pulse Ox O2 Delivery O2 Flow Rate FiO2 03/09/19 16:23 37.9 86 20 123/68 (86) 93 Room Air 03/09/19 08:30 1.00 Capillary Refill : Less Than 3 Seconds General Appearance: Mild Distress, Obese Respiratory: Lungs Clear, Normal Breath Sounds, No Respiratory Distress Cardiovascular: Regular Rate, Rhythm, No Edema, No Gallop, Normal Peripheral Pulses, Systolic Murmur Extremity: No Calf Tenderness, No Pedal Edema, Other (old wound on lower L anteromedial leg) Neurologic/Psychiatric: Alert, Oriented x3, Normal Mood/Affect Results/Procedures Lab Laboratory Tests 03/09/19 05:45 Patient resulted labs reviewed. Assessment/Plan Assessment and Plan Assess & Plan/Chief Complaint Assessment: 1. fever and anemia s/p emergent surgery due to incarcerated bowel 2. diabetes mellitus 3. hypertension 4. asthma 5. ADHD Plan: 1. with fever and DM, monitor for signs of infection 2. monitor fever 3. monitor anemia 4. continue medications for chronic conditions Clinical Quality Measures DVT/VTE Risk/Contraindication: Risk Factor Score Per Nursin RFS Level Per Nursing on Admit: 4+=Very High LUPE GRIER DO 03/09/192034: Subjective Subjective/Events-last exam Pt doing better. Abdominal pain is worse today. Pt did not use her CPAP because her family did not bring it in. Will order PT and OT to get her out of bed since she appears to have risk for CO2 narcosis. Review of Systems Gastrointestinal: Abdominal Pain Objective Exam General Appearance: No Apparent Distress, WD/WN, Chronically ill, Obese Respiratory: Lungs Clear Cardiovascular: Regular Rate, Rhythm Neurologic/Psychiatric: Alert, Oriented x3, No Motor/Sensory Deficits, Normal Mood/Affect Skin: Normal Color, Warm/Dry Assessment/Plan Assessment and Plan Assess & Plan/Chief Complaint Pain control High risk for CO2 narcosis Diagnosis/Problems Diagnosis/Problems (1) Incarcerated hernia Status: Acute (2) SBO (small bowel obstruction) Status: Acute (3) Leukocytosis Status: Acute Qualifiers: Qualified Codes: D72.823 - Leukemoid reaction (4) Abdominal pain Status: Acute Qualifiers: Qualified Codes: R10.84 - Generalized abdominal pain (5) SAPNA on CPAP Status: Chronic Supervisory-Addendum Brief Verification & Attestation Participated in pt care: history, MDM, physical Personally performed: exam, history, MDM, supervision of care Care discussed with: Medical Student Procedures: n/a Results interpretation: Verified all documentation Verification and Attestation of Medical Student E/M Service A medical student performed and documented this service in my presence. I reviewed and verified all information documented by the medical student and made modifications to such information, when appropriate. I personally performed the physical exam and medical decision making. Lupe Grier, Mar 09, 2019,20:34 JASMIN SMITH MED STUDENT Mar 09, 2019 11:16 LUPE GRIER DO Mar 09, 2019 20:35
[2019-03-09 12:00] VITALS: BP 125/63
[2019-03-09] MEDS ORDERED: ENOXAPARIN 40 MG/0.4 ML (LOVENOX) SYR SC SCH (13:00)
[2019-03-09] MEDS: ENOXAPARIN 60 MG/0.6 ML (LOVENOX) SYR SC SCH (13:23)
[2019-03-09] MEDS: oxyCODONE/APAP 10/325MG (PERCOCET 10) TABLET PO PRN ×2 (13:23→18:20)
--- NOTE | 2019-03-09 14:00 | Anesthesia-General Post-Op ---
General Patient Condition Pain: Controlled (Pt is having abd pain, which is to be expected. ) Post Op Complications Complications None Follow Up Care/Instructions Patient Instructions None needed. Anesthesia/Patient Condition Patient Condition Patient is doing well, no complaints, stable vital signs, no apparent adverse anesthesia problems. No complications reported per nursing. PEDRITO BERMEO DO Mar 09, 2019 14:00
--- NOTE | 2019-03-09 14:06 | NUR ---
CM/SS spoke with the patient in regards to SS Consult. Patient is worried about discharging to home, as right now she does not feel she could get herself out of her bed on her own. 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 Family is staying at the home now to care take of the sister (Fya). Patient would like information sent to [facility] for a SNF as a consideration before she would return home. Referral sent to [facility]. updated on patient interest in SNF.
--- NOTE | 2019-03-09 15:54 | NUR ---
Pastoral care visit.
--- NOTE | 2019-03-09 15:57 | NUR ---
"RD ASSESSMENT PMHx: DM, HTN, osteoporosis PT INTERACTION: Pt was awake and pleasant during nutrition assessment. Pt states current appetite as poor, but it had been pretty good until recently. Pt states some issues with chewing, stating that she had recently broken a tooth. Pt states recent issues with constipation as well. Note pt has not had a BM since her procedure. Pt states no recent wt changes. Note unable to determine recent wt hx, per chart review. Pt states current DM management as very good with her most recent HbA1c of 5.7. ABNORMAL NUTRITION-RELATED LAB VALUES: Hgb 11.3 (L); Ca 8.2 (L); Pro 5.8 (L); glu 136 (H) Est. kcal needs: 0318-4339 kcal (15-18 kcal/kg) Est. Pro needs: 92-123 g Pro (0.6-0.8 g Pro/kg) PES STATEMENT: Inadequate oral intake related to loss of appetite | constipation as evidenced by patient interview INTERVENTION: Continue with current diet order of clear liquid diet. Advance to CHO 60g/m 2snack diet, when medically able. Encouraged pt to eat when able. MONITOR/EVALUATE: PO Intake; Plan of Care; Hydration Status; Weight Status; Lab Values Nadiya Alvarado, MS, RD, LD [phone]"
[2019-03-09 16:23] VITALS: BP 123/68
[2019-03-09] MEDS ORDERED: CALCIUM CARBONATE 500 MG (TUMS) TAB.CHEW PO NR (18:00)
[2019-03-09 20:00] VITALS: BP 117/77
[2019-03-10 00:10] VITALS: BP 123/68
[2019-03-10] MEDS: ENOXAPARIN 60 MG/0.6 ML (LOVENOX) SYR SC SCH ×2 (00:40→13:49)
[2019-03-10] MEDS: oxyCODONE/APAP 10/325MG (PERCOCET 10) TABLET PO PRN ×3 (00:40→20:20)
[2019-03-10 03:13] VITALS: BP 134/76
[2019-03-10 06:52] LABS: BASOPHILS % (AUTO) 0 % (0-10); EOSINOPHILS # (AUTO) 0.1 10^3/uL (0.0-0.3); EOSINOPHILS % (AUTO) 1 % (0-10); HEMATOCRIT 36 % (35-52); HEMOGLOBIN 11.8 G/DL (11.5-16.0); LYMPHOCYTES # (AUTO) 1.6 X 10^3 (1.0-4.0); LYMPHOCYTES % (AUTO) 16 % (12-44); MEAN CORPUSCULAR HEMOGLOBIN 30 PG (25-34); MEAN CORPUSCULAR HGB CONC 33 G/DL (32-36); MEAN CORPUSCULAR VOLUME 90 FL (80-99); MEAN PLATELET VOLUME 8.4 FL (7.4-10.4); MONOCYTES # (AUTO) 1.1 X 10^3 (0.0-1.0); MONOCYTES % (AUTO) 11 % (0-12); NEUTROPHILS # (AUTO) 7.1 X 10^3 (1.8-7.8); NEUTROPHILS % (AUTO) 72 % (42-75); PLATELET COUNT 232 10^3/uL (130-400); RED CELL DISTRIBUTION WIDTH 15.2 % (10.0-14.5); WHITE BLOOD COUNT 9.8 10^3/uL (4.3-11.0)
[2019-03-10 07:19] LABS: ALANINE AMINOTRANSFERASE 23 U/L (0-55); ALBUMIN 3.3 GM/DL (3.2-4.5); ALKALINE PHOSPHATASE 82 U/L (40-136); BILIRUBIN,TOTAL 0.8 MG/DL (0.1-1.0); BUN/CREATININE RATIO 18; CALCIUM 8.8 MG/DL (8.5-10.1); CARBON DIOXIDE 24 MMOL/L (21-32); CHLORIDE 101 MMOL/L (98-107); CREATININE SERUM 0.72 MG/DL (0.60-1.30); GFR ESTIMATED > 60; GLUCOSE 138 MG/DL (70-105); POTASSIUM 3.9 MMOL/L (3.6-5.0); SODIUM 133 MMOL/L (135-145)
[2019-03-10 07:27] VITALS: BP 120/72
--- NOTE | 2019-03-10 07:48 | Progress Note - Surgery ---
BEENA BOND,MED STUDENT 03/10/19 0748: Subjective Date Seen by a Provider: Mar 10, 2019 Time Seen by a Provider: 07:15 Subjective/Events-last exam Ms. Durand states she is feeling better today. Her abdominal pain continues to improve and she is asking to advance her diet from clear liquids. She is passing flatus and reports passing a small amount of stool earlier. Patient also reports heartburn that is made worse with drinking anything besides water. She is interesting in discussing the possibility of a rehab facility closer to her home in [place] with the social sciences research scientist. Denies nausea, vomiting, or chest pain. Focused Exam Lactate Level 03/08/19 09:57: Lactic Acid Level 1.89 Objective Exam Vital Signs Date Time Temp Pulse Resp B/P (MAP) Pulse Ox O2 Delivery O2 Flow Rate FiO2 03/10/19 03:13 37.2 86 20 134/76 (95) 96 Room Air 03/10/19 00:10 37.9 86 20 123/68 (86) 93 Room Air 03/09/19 20:00 38.2 90 18 117/77 (90) 93 Room Air 03/09/19 20:00 Nasal Cannula 1.00 03/09/19 16:23 37.9 86 20 123/68 (86) 93 Room Air 03/09/19 12:00 37.0 84 18 125/63 (83) 94 Room Air 03/09/19 08:30 94 Nasal Cannula 1.00 03/09/19 08:00 38.1 87 20 112/70 (84) 94 Room Air I & O0 03/10/19 07:00 Intake Total 1860 ml Output Total 2250 ml Balance -390 ml Capillary Refill : Less Than 3 Seconds General Appearance: No Apparent Distress, WD/WN, Obese HEENT: Moist Mucous Membranes Neck: Normal Inspection, Non Tender Respiratory: Lungs Clear Cardiovascular: Regular Rate, Rhythm Gastrointestinal: other (incisions clean, dry and intact. no erythema) Extremity: No Calf Tenderness, No Pedal Edema, Other (old wound on lower L anteromedial leg) Neurologic/Psychiatric: Alert, Oriented x3, Normal Mood/Affect Skin: Normal Color, Warm/Dry Lymphatic: No Adenopathy Results Lab Laboratory Tests 03/10/19 06:20: White Blood Count 9.8, Red Blood Count 4.00L, Hemoglobin 11.8, Hematocrit 36, Mean Corpuscular Volume 90, Mean Corpuscular Hemoglobin 30, Mean Corpuscular Hemoglobin Concent 33, Red Cell Distribution Width 15.2H, Platelet Count 232, Mean Platelet Volume 8.4, Neutrophils (%) (Auto) 72, Lymphocytes (%) (Auto) 16, Monocytes (%) (Auto) 11, Eosinophils (%) (Auto) 1, Basophils (%) (Auto) 0, Neutrophils # (Auto) 7.1, Lymphocytes # (Auto) 1.6, Monocytes # (Auto) 1.1H, Eosinophils # (Auto) 0.1, Basophils # (Auto) 0.0, Sodium Level 133L, Potassium Level 3.9, Chloride Level 101, Carbon Dioxide Level 24, Anion Gap 8, Blood Urea Nitrogen 13, Creatinine 0.72, Estimat Glomerular Filtration Rate > 60, BUN/Creatinine Ratio 18, Glucose Level 138H, Calcium Level 8.8, Corrected Calci um 9.4, Total Bilirubin 0.8, Aspartate Amino Transf (AST/SGOT) 23, Alanine Aminotransferase (ALT/SGPT) 23, Alkaline Phosphatase 82, Total Protein 6.0L, Albumin 3.3 Microbiology 03/08/19 MRSA Screen - Final, Complete MRSA not isolated Assessment/Plan Assessment/Plan Assessment/Plan Incarcerated umbilical hernia and partial small bowel obstruction s/p herniarrhaphy and small bowel resection Esophageal reflux Continue PO pain meds, IS use, and ambulation Consider advancing diet today Lidocaine swish and swallow and Carafate for reflux symptoms Consult social work about possibility of rehab, although I think she should be able to go home by herself (her niece lives nearby) Clinical Quality Measures DVT/VTE Risk/Contraindication: Risk Factor Score Per Nursin RFS Level Per Nursing on Admit: 4+=Very High MALIK DELATORRE DO 03/10/19 1436: Subjective Time Seen by a Provider: 10:54 Subjective/Events-last exam Pt had small BM and thinks pain is mostly controlled. Assessment/Plan Assessment/Plan Assessment/Plan Will talk to SW about rehab, increase diet and encourage ambulation and IS use. Supervisory-Addendum Brief Verification & Attestation Participated in pt care: history, MDM, physical Personally performed: exam, history, MDM Care discussed with: Medical Student Procedures: n/a Verification and Attestation of Medical Student E/M Service A medical student performed and documented this service in my presence. I reviewed and verified all information documented by the medical student and made modifications to such information, when appropriate. I personally performed the physical exam and medical decision making. Malik Delatorre, Mar 10, 2019,14:36 BEENA BOND,MED STUDENT Mar 10, 2019 07:48 MALIK DELATORRE DO Mar 10, 2019 14:36
[2019-03-10] MEDS: MICONAZOLE 2% POWDER (DESENEX AF) 90 GM TOP SCH ×2 (08:27→20:19)
--- NOTE | 2019-03-10 09:02 | NUR ---
CM/SS Patient denied by [facility] late afternoon on 03/09. Will discuss with the patient and her family further discharge planning.
[2019-03-10 11:17] VITALS: BP 126/60
--- NOTE | 2019-03-10 11:46 | Physical Therapy Progress Note ---
Therapy Progress Note Patient observed ambulating in hallway with nursing staff at [facility]. PT consulted with physician. PT to dismiss patient from services at this time and nursing staff to continue with ambulation PRN. KAROLINA RUEDA PT Mar 10, 2019 11:46
--- NOTE | 2019-03-10 12:49 | Occupational Ther Daily Note ---
OT Current Status-Daily Note Subjective Pt sitting in chair, agrees to therapy. Pt reports "indigestion" and 7/10 abdominal pain. ADL-Treatment Pt sit to stand from chair without assist. Pt moves slowly, but does not have any LOB during ambulation to restroom with FWW. Pt stood at sink to complete grooming tasks. Pt washed face, combed hair, and completed oral care with modified independence. Pt requires increased time for functional tasks. Pt returned to chair, seated with needs met after session. Therapy Code Descriptions/Definitions Functional [place] Measure: 0=Not Assessed/NA 4=Minimal Assistance 1=Total Assistance 5=Supervision or Setup 2=Maximal Assistance 6=Modified [place] 3=Moderate Assistance 7=Complete IndependenceSCALE: Activities may be completed with or without assistive devices. 2-Ejhujeuxvh-timkggj completes the activity by him/herself with no assistance from a helper. 5-Set-up or Clean-up Assistance-helper sets up or cleans up; patient completes activity. [place] assists only prior to or following the activity. 4-Supervision or Touching Assistance-helper provides verbal cues and/or touching/steadying and/or contact guard assistance as patient completes activity. Assistance may be provided throughout the activity or intermittently. 3-Partial/Moderate Assistance-helper does LESS THAN HALF the effort. [place] lifts, holds or supports trunk or limbs, but provides less than half the effort. 2-Substantial/Maximal Assistance-helper does MORE THAN HALF the effort. [place] lifts or holds trunk or limbs and provides more than half the effort. 3-Ulsameybc-izryqk does ALL the effort. Patient does none of the effort to complete the activity. Or, the assistance of 2 or more helpers is required for the patient to complete the activity. If activity was not attempted, code reason: 7-Patient Refused. 9-Not Applicable-not attempted and the patient did not perform the activity before the current illness, exacerbation or injury. 10-Not Attempted due to Environmental Limitations-(lack of equipment, weather restraints, etc.). 88-Not Attempted due to Medical Conditions or Safety Concerns. Oral Hygiene (QC): 6 OT Short Term Goals Short Term Goals 1=Demonstrate adherence to instructed precautions during ADL tasks. 2=Patient will verbalize/demonstrate understanding of assistive devices/modif ications for ADL. 3=Patient will improve strength/tolerance for activity to enable patient to perform ADL's. OT Correction Goals Adult Probation Officer Goals Time Frame: Mar 18, 2019 Eating (QC): 6 Oral Hygiene (QC): 6 Shower/Bathe Self (QC): 5 Upper Body Dressing (QC): 5 Lower Body Dressing (QC): 5 On/Off Footwear (QC): 5 Toileting Hygiene (QC): 5 Toilet/Commode Transfer (QC): 5 Additional Goals: 1-Demonstrate ADL Tasks, 2-Verbalize Understanding, 3- ImproveStrength/Jonathan 1=Demonstrate adherence to instructed precautions during ADL tasks. 2=Patient will verbalize/demonstrate understanding of assistive devices/modifications for ADL. 3=Patient will improve strength/tolerance for activity to enable patient to perform ADL's. OT Education/Plan Discharge Recommendations Plan/Recommendations: Continue POC Treatment Plan/Plan of Care Patient would benefit from OT for education, treatment and training to promote independence in ADL's, mobility, safety and/or upper extremity function for ADL's. Plan of Care: ADL Retraining, Functional Mobility, UE Funct Exercise/Act, UE Neuromus Re-Ed/Coord, OTHER (energy conservation education) Treatment Duration: Mar 18, 2019 Frequency: 5 times per week Estimated Hrs Per Day: .5 hour per day Agreement: Yes Rehab Potential: Fair Time/GCodes Start Time: 10:14 Stop Time: 10:33 Total Time Billed (hr/min): 19 Billed Treatment Time 1 visit, ADL(19minutes) SD JOHNSON OT Mar 10, 2019 12:49
--- NOTE | 2019-03-10 13:19 | NUR ---
CM/SS spoke with patient about any needs or plans upon discharge. Plan: The patient verbalizes that she would like to go to a rehab facility. CM/SS discussed with the patient that they do not meet the skilled criteria. CM/SS informed the patient she could go home with Home Health. Home Health: The patient states that her sister has used [facility] in the past and she would also like them. A choice form was signed and completed. Waiting for Home Health orders to be put in for information to be sent. Summary: The patient has other family members that assist with taking care of her sister that may be able to help with small things around the house. The patient verbalized understanding for Home Health Physical Therapy. There are no other needs at this time. Will continue to follow. Addendum: 03/10/19 at 1336 by ANA GUAJARDO reviewed / approved
--- NOTE | 2019-03-10 13:23 | Progress Note - Hospitalist ---
JASMIN SMITH MED STUDENT 03/10/19 1323: Subjective HPI/CC On Admission Date Seen by Provider: Mar 10, 2019 Time Seen by Provider: 08:35 CC: Abdominal pain HPI: This is a [facility] pt who presented to the [facility] ER with complaints of abdominal pain and was found to have a ventral hernia incarceration with subsequent small bowel obstruction in need of urgent surgery. She was provided supportive care in the ER, transported to [place] Room 423, seen urgently by Dr. Delatorre who brought her to surgery and resected bowel and otherwise she tolerated the procedure well. At this current time the pt is drowsy and has no complaints. Subjective/Events-last exam * No longer has a fever, anemia has improved * new lab finding of decreased sodium * interested in SNF * She has continued to have abdominal pain, rates it 12/07. No BM when I spoke to her, per chart she has had one since then. She had increased bowel sounds on auscultation. * New complaint of cough and chest congestion, lungs CTAB. * Pain on palpation of R ruiz, there appeared to be two bruise-like warner where I was palpating, as if she had bumped into something there. Review of Systems General: No Chills HEENT: Head Aches (around left eye) Pulmonary: Dyspnea (constant due to asthma), Cough Cardiovascular: No: Chest Pain, Palpitations, Edema (no more than normal) Gastrointestinal: Abdominal Pain; No: Nausea, Vomiting Genitourinary: No Dysuria, No Frequency Neurological: No: Numbness Focused Exam Lactate Level 03/08/19 09:57: Lactic Acid Level 1.89 Objective Exam Vital Signs Vital Signs Date Time Temp Pulse Resp B/P (MAP) Pulse Ox O2 Delivery O2 Flow Rate FiO2 03/10/19 11:17 37.1 78 18 126/60 (82) 93 Room Air 03/09/19 20:00 1.00 Capillary Refill : Less Than 3 Seconds General Appearance: No Apparent Distress, Anxious, Obese Respiratory: Lungs Clear, Normal Breath Sounds, No Accessory Muscle Use, No Res piratory Distress Cardiovascular: Regular Rate, Rhythm, No Edema, Normal Peripheral Pulses, Systolic Murmur Gastrointestinal: Abnormal Bowel Sounds (increased) Extremity: No Non Tender (tender R ruiz, two small, bruise-like warner present); No Calf Tenderness, No Pedal Edema Neurologic/Psychiatric: Alert, Oriented x3 Results/Procedures Lab Laboratory Tests 03/10/19 06:20 Patient resulted labs reviewed. Assessment/Plan Assessment and Plan Assess & Plan/Chief Complaint Assessment: 1. s/p emergent surgery due to incarcerated bowel 2. symptoms of cough and chest congestion w/ lungs CTAB 3. diabetes mellitus 4. hypertension 5. asthma 6. ADHD Plan: 1. continue post-surgical protocol 2. monitor for signs of pneumonia 3. evaluate need for SNF 4. monitor anemia 5. continue medications for chronic conditions Clinical Quality Measures DVT/VTE Risk/Contraindication: Risk Factor Score Per Nursin RFS Level Per Nursing on Admit: 4+=Very High LUPE GRIER DO 03/10/192049: Subjective Subjective/Events-last exam Labs are better. Feels much better Clear liquid diet is helping. Wants to go to a prison facility for some help. Overall feeling good but having significant confidence problems. Review of Systems Gastrointestinal: Abdominal Pain Objective Exam General Appearance: No Apparent Distress, WD/WN Respiratory: Lungs Clear Cardiovascular: Regular Rate, Rhythm Neurologic/Psychiatric: Alert, Oriented x3, No Motor/Sensory Deficits, Normal M ood/Affect Assessment/Plan Assessment and Plan Assess & Plan/Chief Complaint Supportive care May need facility shelter if cannot manage at home? Diagnosis/Problems Diagnosis/Problems (1) Incarcerated hernia Status: Acute (2) SBO (small bowel obstruction) Status: Acute (3) Leukocytosis Status: Acute Qualifiers: Qualified Codes: D72.823 - Leukemoid reaction (4) Abdominal pain Status: Acute Qualifiers: Qualified Codes: R10.84 - Generalized abdominal pain (5) SAPNA on CPAP Status: Chronic Supervisory-Addendum Brief Verification & Attestation Participated in pt care: history, MDM, physical Personally performed: exam, history, MDM, supervision of care Care discussed with: Medical Student Procedures: n/a Results interpretation: Verified all documentation Verification and Attestation of Medical Student E/M Service A medical student performed and documented this service in my presence. I reviewed and verified all information documented by the medical student and made modifications to such information, when appropriate. I personally performed the physical exam and medical decision making. Lupe Grier, Mar 10, 2019,20:50 JASMIN SMITH MED STUDENT Mar 10, 2019 13:23 LUPE GRIER DO Mar 10, 2019 20:50
[2019-03-10] MEDS ORDERED: LIDOCAINE 2% VISCOUS 15 ML UDC PO PRN (15:15)
[2019-03-10 16:00] VITALS: BP 124/61
[2019-03-10] MEDS: SUCRALFATE 1 GM (CARAFATE) TAB PO SCH ×2 (16:29→20:19)
[2019-03-10] MEDS: ONDANSETRON 4 MG (ZOFRAN) ORAL DISSOLVE TAB PO PRN (20:23)
[2019-03-11] VITALS: BP 148/66
[2019-03-11] MEDS: ENOXAPARIN 60 MG/0.6 ML (LOVENOX) SYR SC SCH ×2 (01:17→13:10)
[2019-03-11] MEDS: SUCRALFATE 1 GM (CARAFATE) TAB PO SCH ×4 (05:16→20:14)
[2019-03-11 06:47] LABS: BASOPHILS % (AUTO) 0 % (0-10); EOSINOPHILS # (AUTO) 0.2 10^3/uL (0.0-0.3); EOSINOPHILS % (AUTO) 2 % (0-10); HEMATOCRIT 35 % (35-52); HEMOGLOBIN 11.4 G/DL (11.5-16.0); LYMPHOCYTES # (AUTO) 1.2 X 10^3 (1.0-4.0); LYMPHOCYTES % (AUTO) 17 % (12-44); MEAN CORPUSCULAR HEMOGLOBIN 29 PG (25-34); MEAN CORPUSCULAR HGB CONC 33 G/DL (32-36); MEAN CORPUSCULAR VOLUME 89 FL (80-99); MEAN PLATELET VOLUME 8.2 FL (7.4-10.4); MONOCYTES # (AUTO) 0.9 X 10^3 (0.0-1.0); MONOCYTES % (AUTO) 13 % (0-12); NEUTROPHILS # (AUTO) 4.8 X 10^3 (1.8-7.8); NEUTROPHILS % (AUTO) 68 % (42-75); PLATELET COUNT 252 10^3/uL (130-400); WHITE BLOOD COUNT 7.1 10^3/uL (4.3-11.0)
[2019-03-11 07:16] LABS: ALANINE AMINOTRANSFERASE 24 U/L (0-55); ALBUMIN 3.2 GM/DL (3.2-4.5); ALKALINE PHOSPHATASE 80 U/L (40-136); BILIRUBIN,TOTAL 0.6 MG/DL (0.1-1.0); BUN/CREATININE RATIO 19; CALCIUM 8.7 MG/DL (8.5-10.1); CARBON DIOXIDE 23 MMOL/L (21-32); CHLORIDE 100 MMOL/L (98-107); CREATININE SERUM 0.73 MG/DL (0.60-1.30); GFR ESTIMATED > 60; GLUCOSE 129 MG/DL (70-105); POTASSIUM 3.8 MMOL/L (3.6-5.0); SODIUM 133 MMOL/L (135-145); TOTAL PROTEIN 6.2 GM/DL (6.4-8.2)
[2019-03-11 08:00] VITALS: BP 133/64
[2019-03-11] MEDS: MICONAZOLE 2% POWDER (DESENEX AF) 90 GM TOP SCH ×2 (08:26→20:15)
--- NOTE | 2019-03-11 08:44 | Progress Note - Surgery ---
BEENA BOND,MED STUDENT 03/11/19 0844: Subjective Date Seen by a Provider: Mar 11, 2019 Time Seen by a Provider: 08:00 Subjective/Events-last exam Ms. Durand reports improvement in reflux symptoms and abdominal pain. She complains of some shortness of breath at night but states that this is due to not having her CPAP machine here. Patient had a small bowel movement yesterday and continues to pass flatus. She would like to advance her diet. She spoke with social work yesterday regarding rehab and was told that she does not qualify. She states that she has family nearby that are able to help her at home upon discharge. Focused Exam Lactate Level 03/08/19 09:57: Lactic Acid Level 1.89 Objective Exam Vital Signs Date Time Temp Pulse Resp B/P (MAP) Pulse Ox O2 Delivery O2 Flow Rate FiO2 03/11/19 08:00 37.2 79 18 133/64 (87) 96 Room Air 03/11/19 00:00 37.5 86 20 148/66 (93) 95 Room Air 03/10/19 20:30 95 Room Air 1.00 03/10/19 16:00 37.4 79 16 124/61 (82) 95 Room Air 03/10/19 11:17 37.1 78 18 126/60 (82) 93 Room Air I & O 03/11/19 07:00 Intake Total 2260 ml Output Total 1400 ml Balance 860 ml Capillary Refill : Less Than 3 Seconds General Appearance: No Apparent Distress, WD/WN HEENT: Moist Mucous Membranes Neck: Normal Inspection, Non Tender Respiratory: Chest Non Tender, No Accessory Muscle Use, No Respiratory Distress Cardiovascular: Regular Rate, Rhythm, Normal Peripheral Pulses Gastrointestinal: soft; No distended; tenderness (mild incisional tenderness) Extremity: No Calf Tenderness, No Pedal Edema Neurologic/Psychiatric: Alert, Normal Mood/Affect Skin: Normal Color, Warm/Dry Lymphatic: No Adenopathy Results Lab Laboratory Tests 03/11/19 06:15: White Blood Count 7.1, Red Blood Count 3.93L, Hemoglobin 11.4L, Hematocrit 35, Mean Corpuscular Volume 89, Mean Corpuscular Hemoglobin 29, Mean Corpuscular Hemoglobin Concent 33, Red Cell Distribution Width 15.0H, Platelet Count 252, Mean Platelet Volume 8.2, Neutrophils (%) (Auto) 68, Lymphocytes (%) (Auto) 17, Monocytes (%) (Auto) 13H, Eosinophils (%) (Auto) 2, Basophils (%) (Auto) 0, Neutrophils # (Auto) 4.8, Lymphocytes # (Auto) 1.2, Monocytes # (Auto) 0.9, Eosinophils # (Auto) 0.2, Basophils # (Auto) 0.0, Sodium Level 133L, Potassium Level 3.8, Chloride Level 100, Carbon Dioxide Level 23, Anion Gap 10, Blood Urea Nitrogen 14, Creatinine 0.73, Estimat Glomerular Filtration Rate > 60, BUN/Creatinine Ratio 19, Glucose Level 129H, Calcium Level 8.7, Corrected Calcium 9.3, Total Bilirubin 0.6, Aspartate Amino Transf (AST/SGOT) 20, Alanine Aminotransferase (ALT/SGPT) 24, Alkaline Phosphatase 80, Total Protein 6.2L, Albumin 3.2 Microbiology 03/08/19 MRSA Screen - Final, Complete MRSA not isolated Assessment/Plan Assessment/Plan Assessment/Plan Incarcerated umbilical hernia and partial small bowel obstruction s/p herniarrhaphy and small bowel resection Esophageal reflux Continue PO pain meds, IS use, and ambulation Continue Carafate as needed Advance diet as tolerated Plan for discharge home later today Clinical Quality Measures DVT/VTE Risk/Contraindication: Risk Factor Score Per Nursin RFS Level Per Nursing on Admit: 4+=Very High DARION HUNTER DO 03/12/19 1342: Subjective Subjective/Events-last exam Having bowel function. Pain controlled. Tolerating diet. No complaints at this time. Denies n/v fever sweats chills shortness of breath or chest pain. Objective Exam General Appearance: No Apparent Distress, WD/WN HEENT: PERRL/EOMI Neck: Normal Inspection, Non Tender Respiratory: Chest Non Tender, No Accessory Muscle Use, No Respiratory Distress Cardiovascular: Regular Rate, Rhythm Gastrointestinal: soft, tenderness (mild incisional tenderness) Extremity: No Calf Tenderness Neurologic/Psychiatric: Alert, Oriented x3, Normal Mood/Affect Skin: Normal Color, Warm/Dry Assessment/Plan Assessment/Plan Assessment/Plan incarcerated umbilical hernia and psbo s/p hernia repair and small bowel resection patient doing well pain controlled. diet as tolerates dc home patient in agreement with plan. Supervisory-Addendum Brief Verification & Attestation Participated in pt care: history, MDM, physical Personally performed: exam, history, MDM, supervision of care Care discussed with: Medical Student Procedures: n/a Results interpretation: Verified all documentation Verification and Attestation of Medical Student E/M Service A medical student performed and documented this service in my presence. I reviewed and verified all information documented by the medical student and made modifications to such information, when appropriate. I personally performed the physical exam and medical decision making. Darion Hunter, Mar 11, 2019,13:42 BEENA BOND,MED STUDENT Mar 11, 2019 08:44 DARION HUNTER DO Mar 12, 2019 13:42
--- NOTE | 2019-03-11 12:47 | Progress Note - Hospitalist ---
Subjective HPI/CC On Admission Date Seen by Provider: Mar 11, 2019 Time Seen by Provider: 12:15 CC: Abdominal pain HPI: This is a [facility] pt who presented to the [facility] with complaints of abdominal pain and was found to have a ventral hernia incarceration with subsequent small bowel obstruction in need of urgent surgery. She was provided supportive care in the ER, transported to [place] Room 423, seen urgently by Dr. Delatorre who brought her to surgery and resected bowel and otherwise she tolerated the procedure well. At this current time the pt is drowsy and has no complaints. Subjective/Events-last exam Patient just had 2 bowel movements Feels pretty good but still weak Was to go home tomorrow Family support will be available to pick her up and care for her at home Does not meet criteria for group home or inpatient rehabilitation Review of Systems Gastrointestinal: Abdominal Pain Objective Exam Vital Signs Vital Signs Date Time Temp Pulse Resp B/P (MAP) Pulse Ox O2 Delivery O2 Flow Rate FiO2 03/11/19 08:00 Room Air 03/11/19 08:00 37.2 79 18 133/64 (87) 96 03/10/19 20:30 1.00 Capillary Refill : Less Than 3 Seconds General Appearance: No Apparent Distress, WD/WN, Chronically ill, Obese Respiratory: Chest Non Tender, Lungs Clear, Normal Breath Sounds, No Accessory Muscle Use, No Respiratory Distress Cardiovascular: Regular Rate, Rhythm, No Edema, No Gallop, No JVD, No Murmur, Normal Peripheral Pulses Neurologic/Psychiatric: Alert, Oriented x3, No Motor/Sensory Deficits, Normal Mood/Affect Results/Procedures Lab Laboratory Tests 03/11/19 06:15 Patient resulted labs reviewed. Assessment/Plan Assessment and Plan Assess & Plan/Chief Complaint Assessment: Status post incarcerated hernia Postop ileus Obstructive sleep apnea on C Pap Obesity Plan: Supportive care DC Wednesday Diagnosis/Problems Diagnosis/Problems (1) Incarcerated hernia Status: Acute (2) SBO (small bowel obstruction) Status: Acute (3) Leukocytosis Status: Acute Qualifiers: Leukocytosis type: leukemoid reaction Qualified Codes: D72.823 - Leukemoid reaction (4) Abdominal pain Status: Acute Qualifiers: Abdominal location: generalized Qualified Codes: R10.84 - Generalized abdominal pain (5) SAPNA on CPAP Status: Chronic Clinical Quality Measures DVT/VTE Risk/Contraindication: Risk Factor Score Per Nursin RFS Level Per Nursing on Admit: 4+=Very High LIDYA GRIER DO Mar 11, 2019 12:46
[2019-03-11] MEDS ORDERED: DOCU-143 PO (13:23)
[2019-03-11] MEDS ORDERED: ACHD5005 PO (13:23)
--- NOTE | 2019-03-11 13:24 | Discharge Inst-Simple/Standard ---
Discharge Inst-Standard Discharge Medications New, Converted or Re-Newed RX: RX on Chart Patient Instructions/Follow Up Plan of Care/Instructions/FU: 1-[address] Delatorre Activity as Tolerated: No Discharge Diet: Regular Diet Other Inst to Patient Follow up Appt: Make appointment for 1-[address] Delatorre. Instructions: No lifting greater than 10 pounds. No strenuous activity. May shower in 24 hours, no tub bath or soaking. Use incentive spirometer at home as directed. No Smoking Skin/Wound Care: May remove bandages. Symptoms to Report: Appetite Changes, Extremity Discoloration, Numbness/Tingling, Swelling Increased, Bleeding Excessive, Eyesight Changes, Pain Increased, Urine Color Change, Constipation(Persistent), Fever over 101 degree F, Pain/Pressure in chest, Urinating Difficulty, Cough Up/Vomit Blood, Heart Beat Irreg/Pounding, Pain/Pressure in jaw, Vaginal Bleeding Increase, Cramps in feet or legs, Lightheadedness, Pain/Pressure in shoulder, Diarrhea(Persistent), Memory Changes Suddenly, Questions/Concerns, Weight gain consecutive days, Dizziness/Fainting, Nausea/Vomiting, Shortness of Breath, Weight gain over 2 pounds If questions or concerns contact your physician Or seek help at emergency department. DARION WILLIAM DO Mar 11, 2019 13:24
[2019-03-11 16:15] VITALS: BP 135/71
[2019-03-11 19:25] VITALS: BP 146/66
[2019-03-11] MEDS: ONDANSETRON 4 MG (ZOFRAN) ORAL DISSOLVE TAB PO PRN (20:17)
[2019-03-11] MEDS: oxyCODONE/APAP 10/325MG (PERCOCET 10) TABLET PO PRN (20:23)
[2019-03-12] VITALS: BP 139/65
[2019-03-12] MEDS: ENOXAPARIN 60 MG/0.6 ML (LOVENOX) SYR SC SCH ×2 (01:18→13:41)
[2019-03-12] MEDS: oxyCODONE/APAP 10/325MG (PERCOCET 10) TABLET PO PRN (03:43)
[2019-03-12] MEDS: SUCRALFATE 1 GM (CARAFATE) TAB PO SCH ×2 (05:57→09:59)
[2019-03-12 08:00] VITALS: BP 141/66
[2019-03-12] MEDS: MICONAZOLE 2% POWDER (DESENEX AF) 90 GM TOP SCH (10:06)
--- NOTE | 2019-03-12 12:46 | Discharge Summary ---
Discharge Summary Hospital Course Was the Problem List Reviewed?: Yes Problems/Dx: (1) Incarcerated hernia Status: Acute (2) SBO (small bowel obstruction) Status: Acute (3) Leukocytosis Status: Acute Qualifiers: Qualified Codes: D72.823 - Leukemoid reaction (4) Abdominal pain Status: Acute Qualifiers: Qualified Codes: R10.84 - Generalized abdominal pain (5) SAPNA on CPAP Status: Chronic Hospital Course Date of Admission: Mar 08, 2019 at 08:17 Admission Diagnosis : Family Physician/Provider: No,Local Physician Date of Discharge: 03/12/19 Discharge Diagnosis: incarcerated hernia s/p resection of bowel, post op ileus SAPNA on CPAP Hospital Course: Patient had a slow hospital course after recovering from incarcerated hernia surgery status post resection of the bowel by Dr. Delatorre. Patient recovered was placed in n.p.o. status and slowly restarted clear liquids maintain on IV supportive care. Patient will required oxygen due to not bringing her sleep apnea machine from home. Labs remained stable as did her vital signs and patient was discharged in improved condition to home. Labs and Pending Lab Test: Microbiology 03/08/19 MRSA Screen - Final, Complete MRSA not isolated Home Meds Active Hydrocodone/Acetaminophen 5/325mg Tablet (Acetaminophen/Hydrocodone Bitart) 1 Tab Tab 1 Tab PO Q4-6HR MDD 10 Colace (Docusate Sodium) 100 Mg Capsule 100 Mg PO DAILY Reported Vitamin D3 (Cholecalciferol (Vitamin D3)) 2,000 Unit Capsule 2,000 Unit PO DAILY [place] 3-6-9 1,200 mg Softgel (Fish Oil/Borage/Flax/Om3,6,9#1) 1,200 Mg Capsule 1,200 Mg PO DAILY One Daily For Women 50+ Adv Tb (Multivitamins-Min/FA/Ginkgo) 1 Each Tablet 1 Tab PO DAILY Melatonin 3 Mg Tablet 3 Mg PO HS Proair Hfa (Albuterol Sulfate) 1 Puff Puff 2 Puff IH Q4H PRN 1 PUFF = 90 MCG Penicillin V Potassium 500 Mg Tablet PO UD PRN TAKE 1 TABLET DAY BEFORE DENTAL PROCEDURE THEN TAKE 2 TABS DAY OF DENTAL PROCEDURE AND 1 DAILY FOR 2 DAYS AFTER DENTAL PROCEDURE. Furosemide 40 Mg Tablet 40 Mg PO DAILY Lisinopril 10 Mg Tablet 10 Mg PO DAILY Potassium Chloride 20 Meq Tab.er.prt 20 Meq PO BID Flovent Hfa 44 mcg (Fluticasone Propionate) 1 Ea Aero 2 Puff INH BID Simvastatin 40 Mg Tablet 40 Mg PO HS Metronidazole 45 Gm Gel..gram. TOP DAILY PRN Fluoxetine HCl 20 Mg Capsule 20 Mg PO DAILY TAKES ALONG WITH 10MG CAPSULE Fluoxetine HCl 10 Mg Capsule 10 Mg PO DAILY TAKES ALONG WITH 20MG CAPSULE Methylphenidate ER (Methylphenidate HCl) 54 Mg Tab.er.24 54 Mg PO DAILY Metformin HCl ER (Metformin HCl) 500 Mg Tab.er.24h 500 Mg PO BID Assessment/Pt Instructions [facility] 1 week Discharge Planning: <30 minutes discharge planning Discharge Instructions Discharge Diet: Regular Diet Activity as Tolerated: No Discharge Physical Examination Vital Signs Vital Signs Date Time Temp Pulse Resp B/P (MAP) Pulse Ox O2 Delivery O2 Flow Rate FiO2 03/12/19 08:00 Room Air 03/12/19 08:00 37.1 74 18 141/66 (91) 97 2.00 General Appearance: No Apparent Distress, WD/WN Respiratory: Lungs Clear Cardiovascular: Regular Rate, Rhythm Neurologic/Psychiatric: Alert, Oriented x3, No Motor/Sensory Deficits, Normal Mood/Affect Allergies: Coded Allergies: No Known Drug Allergies (Unverified , 03/08/19) Discharge Summary Date of Admission Mar 08, 2019 at 08:17 Date of Discharge Discharge Date: Mar 12, 2019 Admission Diagnosis Assessment: Incarcerated hernia with SBO s/o urgent resection per Dr Delatorre POD # 0 Chronic debility SAPNA on CPAP Left lower leg spider bite 10 yrs ago with residual altered skin region Plan: NPO IVF Pain control Discharge Diagnosis Assessment: Status post incarcerated hernia Postop ileus Obstructive sleep apnea on C Pap Obesity Plan: Supportive care [place] Wednesday (1) Incarcerated hernia Status: Acute (2) SBO (small bowel obstruction) Status: Acute (3) Leukocytosis Status: Acute Qualifiers: Qualified Codes: D72.823 - Leukemoid reaction (4) Abdominal pain Status: Acute Qualifiers: Qualified Codes: R10.84 - Generalized abdominal pain (5) SAPNA on CPAP Status: Chronic Clinical Quality Measures DVT/VTE Risk/Contraindication: Risk Factor Score Per Nursin RFS Level Per Nursing on Admit: 4+=Very High LIDYA GRIER DO Mar 12, 2019 12:46
== END 2019-03-12 13:40 | disposition home health service (06) | DRG 344 ==
LOC: ER FS 02:52 → 4TH 08:17
PROVIDERS: ADMIT Internal Medicine; ATTEND Internal Medicine
PROC: 0DB80ZX Excision of Small Intestine, Open Approach, Diagnostic (ICD-10-PCS; 2019-03-08)
PROC: 0WUF4JZ Supplement Abdominal Wall with Synthetic Substitute, Percutaneous Endoscopic Approach (ICD-10-PCS; principal; 2019-03-08 11:06)
DX: K42.0 Umbilical hernia with obstruction, without gangrene (principal); K55.011 Focal (segmental) acute (reversible) ischemia of small intestine; Z68.43 Body mass index [BMI] 50.0-59.9, adult; E11.42 Type 2 diabetes mellitus with diabetic polyneuropathy; I10 Essential (primary) hypertension; G47.33 Obstructive sleep apnea (adult) (pediatric); E66.01 Morbid (severe) obesity due to excess calories; J45.909 Unspecified asthma, uncomplicated; F32.9 Major depressive disorder, single episode, unspecified; Z79.84 Long term (current) use of oral hypoglycemic drugs
CPT/HCPCS: 36415; 74177; 80053; 83605; 83690; 84484; 85007; 85025; 85027; 87081; 88302; 88307; 93005; 94664; 96361; 96374; 96375

== ENCOUNTER → 2022-08-31 | Outpatient (CLI) | payer MEDICARE, MEDICAID ==
[~2022-08-31] MED LIST: ACHD5005 PO; ALBU8.5H6 IH; CHOL20003 PO; DOCU-143 PO; FISH12002 PO; FLT4413 INH; FLUO10CA33 PO; FLUO20CA48 PO; FURO40TA4 PO; LISI10TA25 PO; MELA3TAB39 PO; METF-865 PO; METH54TA10 PO; METR45GE6 TOP; MULT-878 PO; PENI500T PO; POTA-179 PO; SIMV40TA25 PO
--- NOTE | 2022-08-31 18:28 | Diagnostic Imaging Report ---
INDICATION: Toe pain COMPARISON: None available. TECHNIQUE: 3 radiographs of the right foot dated 08/31/2022. FINDINGS: No acute fracture or dislocation. No destructive osseous process. Scattered degenerative changes, including moderate joint space narrowing involving the 1st MTP joint with mild osteophyte formation. The Lisfranc joint is well aligned. Moderate sized posterior and plantar calcaneal enthesophytes. Mild background vascular calcifications. No suspicious radiopaque foreign body. IMPRESSION: No acute osseous abnormality with mild degenerative changes, greatest involving the 1st MTP joint. Moderate sized posterior and plantar calcaneal enthesophytes. Dictated by: Dictated on workstation # [id number]
== END ==
LOC: RAD FS 11:25
PROVIDERS: ATTEND Nurse Practitioner
DX: M19.071 Primary osteoarthritis, right ankle and foot (principal)
CPT/HCPCS: 73630